=== PATIENT | male | born 1950 | race Caucasian/White ===

== ENCOUNTER → 2017-08-24 10:49 | Outpatient (CLI) | payer MEDICARE, OTHER ==
[~2017-08-24 10:49] MED LIST: ARISTOCORT 0.5%15 GM TOPICAL; BAYER CHEWABLE81 MG PO; CO Q-10100 MG PO; CRANBERRY 400 M1 TA1 PO; FISH OIL 1,0001 CA1 PO; FLUTICASONE PRO16 GM NASAL; HYDRALAZINE HCL50 MG PO; HYDROCODON-ACE1 EAC7 PO; LASIX40 MG PO; LOPRESSOR25 MG PO; MUCOMYST 2800 MG/4 M PO; MULTIPLE VITAMI1 TA1 PO; NEURONTIN 300300 MG PO; NORVASC10 MG PO; PRINIVIL20 MG PO; TEMAZEPAM30 MG PO; VITAMIN B-6200 M1 PO; VITAMIN D31000 UNIT PO
[2017-10-02 11:02] VITALS: BMI 27.2
== END | disposition home or self-care (01) ==
LOC: D.US 09:00 → D.RAD 09:00 → D.US 10:49
DX: N18.4 Chronic kidney disease, stage 4 (severe) (principal)

== ENCOUNTER 2017-09-22 05:21 | Day surgery (SDC) | payer MEDICARE, OTHER ==
[2017-09-21 16:07] LABS: BASOPHILS 0.4 % (0-2); HEMATOCRIT 33.4 % (42.0-54.0); HEMOGLOBIN 10.8 g/dL (13.5-17.5); IMMATURE GRANULOCYTES 0.2 % (0-5); LYMPHOCYTES 21.2 % (15-50); MCH 27.8 pg (26.0-34.0); MCHC 32.3 g/dL (31.0-37.0); MCV 85.9 fL (80.0-100.0); MEAN PLATELET VOLUME 9.7 fL (7.4-10.4); MONOCYTES 7.2 % (2-11); PLATELET COUNT 139 10x3/uL (130-400); RBC 3.89 10x6/uL (4.20-6.10); RDW 15.7 % (11.5-14.5); WBC 8.3 10x3/uL (4.8-10.8)
[2017-09-21 16:29] LABS: INR 1.06 (0.85-1.17); PROTIME 13.4 SECONDS (11.6-15.0)
[2017-09-21 16:30] LABS: ANION GAP 15.2 mmol/L (8-16); CALCIUM 8.1 mg/dL (8.5-10.1); CARBON DIOXIDE 23.9 mmol/L (21.0-32.0); CREATININE - SERUM 6.1 mg/dL (0.6-1.3); POTASSIUM - SERUM 4.1 mmol/L (3.5-5.1)
[~2017-09-22] VITALS: Ht 182.9 cm; Wt 94.3 kg
--- NOTE | ~2017-09-22 | OP ---
PATIENT NAME: DEBORAH RAZA MEDICAL RECORD: [id number] :46 LOCATION:[facility] ADMISSION DATE: SURGEON: IJEOMA SALGADO MD DATE OF OPERATION: 09/22/2017 REFERRED BY: Dr. Corona. PREOPERATIVE DIAGNOSIS: Chronic kidney disease stage IV-V. OPERATION PERFORMED: Creation of a left wrist radiocephalic Alfred type AV fistula. SURGEON: Ijeoma Salgado MD ANESTHESIA: General endotracheal per PATTERN KEEPER. PREOPERATIVE NOTE: Mr. Raza is a 67-year-old white male patient with deteriorating renal function and is expected that he will require dialysis. He was referred to me for creation of arteriovenous fistula. He is known to have large veins in a satisfactory radial artery at the left wrist, I planned a Alfred fistula. I had also discussed with the patient implantation of a peritoneal catheter, which he had expressed a desire for that had been approved through Dr. Corona's office, but the order was not added to the patient's chart and that was not picked up before he was induced in the operating room. Not having written consent for laparoscopic peritoneal dialysis catheter in this situation with such an early implantation, I thought it is best to forego that today. DESCRIPTION OF PROCEDURE: With the patient under anesthesia, he was prepped and draped in a sterile manner and examined with duplex ultrasound after topical nitroglycerin was applied and with the use of a proximal venous tourniquet. He has very large veins without any evidence of obstruction, a good cephalic vein at the wrist, which runs off via both the proximal cephalic and basilic veins. The radial artery is large without significant calcifications. A longitudinal incision was made at the wrist and the cephalic vein and radial artery exposed, they were dissected from the surrounding tissues. Tributaries and branches divided between ligatures of Vicryl or with electrocautery. The vessels were controlled with Silastic loops. The vein distally was ligated with 3-0 Vicryl and divided and beveled. It was then flushed with heparinized saline and hydrostatically distended and additional papaverine applied topically. The artery was then opened for a distance of approximately 6 mm. The artery was flushed proximally and distally with heparinized saline and following that, an end-to-side end of vein to side of artery anastomosis was performed with running 7-0 Prolene. Upon completion of the suture line and release of the occluding Silastic loops, excellent flow was established in the fistula and the suture line was hemostatic. Doppler examination was very satisfactory with continuous pulsatile flow present in the cephalic vein above the anastomosis and good radial artery flow proximally and distally. The wound was closed with interrupted inverted 3-0 Vicryl and then running intracuticular 4-0 Monocryl and Dermabond glue. It was dressed with Maxorb Ag, Tegaderm, and Cavilon skin prep. The patient was awakened and taken to recovery room in stable condition. The patient will be discharged to home today. He will continue his usual diet OPERATIVE REPORT [id number] DEBORAH RAZA and all of his same home medications and he is given a prescription for Lorton 5/325 twenty tablets. He can take 1 or if necessary 2 as often as every 4 hours p.r.n. for pain. He is to see me back in my office in 2 weeks. He can resume activities and shower and wash over the waterproof plastic dressings as soon as he wishes. He may leave the original operative dressing intact for the next 2 weeks until he sees me in the office or if he wants in the next 5-7 days, he can remove the dressing and thereafter wash the incision site directly with soap and water and then keep it covered with clean dry sterile gauze dressing. Blood loss during the procedure was insignificant and unreplaced. All sponges, instruments, and needles were accounted for. No drain was used and no surgical specimen was submitted for histopathology. TRANSINT:[id number] Voice Confirmation ID: [id number] DOCUMENT ID: [id number] IJEOMA SALGADO MD at 1019 CC: JOSE CORONA MD [id number] DICTATION DATE: 09/22/17 1002 SUPPLY CHAIN PROCUREMENT MANAGER: 09/22/17 1128 [facility] 09/22/17 [place] [id number] [place] [id number]
[~2017-09-22 05:21] MED LIST changes: -HYDROCODON-ACE1 EAC7 PO; -MUCOMYST 2800 MG/4 M PO
[2017-09-22 06:00] VITALS: Ht 182.9 cm; Wt 94.3 kg
[2017-09-22] MEDS ORDERED: HYDROCODON-ACE1 EAC7 PO (09:50)
== END 2017-09-22 12:00 | disposition home or self-care (01) ==
LOC: D.OPS 05:21 → D.PAN 07:30 → D.OPS 07:30
PROVIDERS: Surgery
DX: N18.4 Chronic kidney disease, stage 4 (severe) (principal); Z01.812 Encounter for preprocedural laboratory examination

== ENCOUNTER 2017-10-02 10:32 | Outpatient (CLI) | payer MEDICARE, OTHER ==
[~2017-10-02] VITALS: Ht 182.9 cm; Wt 90.9 kg
--- NOTE | ~2017-10-02 | OP ---
PATIENT NAME: DEBORAH RUCKER MEDICAL RECORD: [id number] :46 LOCATION:D[facility] ADMISSION DATE: SURGEON: JOSE DEE MD DATE OF OPERATION: 10/02/2017 PROCEDURE: Left heart catheterization, selective coronary angiography, right femoral artery approach. CATHETERS: A 5-[place] sheath, 5/4 left and right Kiki, 5/4 pig. The procedure was well tolerated and the patient returned to gao, sheath removed. ExoSeal device placed. FINDINGS: Left ventriculography in the 30-degree LLAMAS view shows global hypokinesis, reduced LV function, estimated EF 25% to 30%. CORONARY ANATOMY: 1. Left main: Left main is free of disease. 2. LAD has proximal portion at the takeoff of a large diagonal, has about a 90% stenosis. This involves the diagonal itself about 80% proximal stenosis. 3. Circumflex: Circumflex has 1 large OM about 80% stenosis. 4. Right coronary artery: Right coronary artery has severe diffuse areas of stenosis 80% to 90% with a reasonable target distally. IMPRESSION: Multivessel coronary artery disease, decreased LV systolic function. Given anatomy, it would probably be best suited for coronary artery bypass grafting. Dr. Castillo will be consulted for that purpose. TRANSINT:[id number] Voice Confirmation ID: [id number] DOCUMENT ID: [id number] JOSE DEE MD CC: [id number] DICTATION DATE: 10/02/17 1404 WE[facility] PULLER HEAD: 10/02/17 1430 [facility] [address] [place] [address]
--- NOTE | ~2017-10-02 | HEMODYNAMI ---
PATIENT:DEBORAH RUCKER GENE MEDICAL RECORD: [id number] : 46 LOCATION:[facility] ADMISSION DATE: 10/02/17 Generatedon:10/02/201714:00 Patient name: DEBORAH RUCKER Patient #: [id number] SSN: : 1950 Date of study: 10/02/2017 Page: Of Hemodynamic Procedure Report Patient Data Patient Demographics Procedure consent was obtained First Name: DEBORAH Gender: Male Last Name: CHAIM : 1950 [facility] Initial: GENE Age: 67 year(s) Patient #: [id number] Race: Unknown Additional ID: [id number] Contact details [address]: [address] [place] [address] State: [place] City: [place] Zip code: [address] Past Medical History Allergies Allergen Reaction Date Comments Reported Other allergy 10/02/2017 PCN Admission Admission Data Admission Date: 10/02/2017 Admission Time: 10:32 Height (in.): 72 BSA: 2.17 (m2) Height (cm.): 182.88 BMI: 28.21 (kg/m2) Weight (lbs.): 208 Weight (kg.): 94.35 Procedure Procedure Types Cath Procedure Diagnostic Procedure [facility] w/Coronaries Procedure Description Procedure Date Procedure Date: 10/02/2017 Procedure Start Time: 13:44 Procedure End Time: 13:59 Procedure Staff Name Function Henry Chavis MD Performing Physician Alie Evans RT Monitor Nancy Gomes RT Scrub Neela Rome RN Nurse Procedure Data Cath Procedure Fluoroscopy Diagnostic fluoroscopy Total fluoroscopy Time: 1.4 time: 1.4 min min Diagnostic fluoroscopy Total fluoroscopy dose: 637 dose: 637 mGy mGy Contrast Material Contrast Material Type Amount (ml) Isovue 300 81 Entry Location Entry Primary Successful Side Size Upsize Upsize Entry Closure Succes sful Closure Location (Fr) 1 (Fr) 2 (Fr) Remarks Device Remarks Femoral Right 5 Fr Exoseal artery Estimated blood loss: 10 ml Diagnostic catheters Device Type Used For End Catheter Placement MULTIPACK JL 4.0 5Fr Procedure catheter MULTIPACK 3DRC 5Fr Procedure catheter MULTIPACK Pigtail 5 Fr Procedure catheter Procedure Complications No complications Procedure Medications Medication Administration Route Dosage 0.9% NaCl I.V. Oxygen NC 2 l/min Lidocaine 2% added to field 20 Heparin Flush Bag added to field 2 bags (1000units/500ml NS) Fentanyl I.V. 50 mcg Versed I.V. 1 mg Versed I.V. 1 mg Fentanyl I.V. 50 mcg Hemodynamics Rest BSA: 2.17 (m2) O2 Consumption: Estimated: 244.02 (ml/min) O2 Consumption indexed : Estimated:112.45 (ml/min/m) Heart Rate: 61 (bpm) Pressure Samples Time Site Value (mmHg) Purpose Heart Use Rate(bpm) 13:52 LV 143/14,23 Snapshot 61 13:52 AO 157/66(99) Pullback 63 13:52 LV 141/15,19 Pullback 63 Gradients Valve Time Site 1 Site 2 Mean SEP/DFP Peak To Heart Use (mmHg) (sec/min) Peak Rate (mmHg) (bpm) Aortic 13:52 LV AO 0 63 141/15,19 157/66(99) Calculations Valve P-P Mean Valve Index Valve Source Name Gradient Area Flow (cm2) Aortic 0 0 Snapshots Pre Cath Intra NCS Post Cath Vital Signs Time Heart Resp SPO2 etCO2 NIBP (mmHg) Rhythm Pain Sedation Rate (ipm) (%) (mmHg) Status Level (bpm) 13:35:34 59 17 98 32.5 161/78(136) NSR 0 (11) 10(A) , No pain 13:40:02 58 17 97 32.5 156/73(130) NSR 0 (11) 10(A) , No pain 13:44:29 61 15 96 39.4 149/73(127) NSR 0 (11) 10(A) , No pain 13:48:51 61 16 97 20.4 152/78(122) NSR 0 (11) 9(A) , No pain 13:53:07 62 15 97 34 149/83(126) NSR 0 (11) 9(A) , No pain 13:57:31 65 16 98 8.3 154/73(125) NSR 0 (11) 10(A) , No pain Medications Time Medication Route Dose Verified Delivered Reason Notes Effec tiveness by by 13:34:54 0.9% NaCl I.V. kvo Henry Keita used for ml/hr Partha Rome cte teacher MD 13:35:20 Fentanyl I.V. 50 Henry Sanchezfany for [facility] [place] [facility] Lew Rome RN sedation 13:35:26 Versed I.V. 1 mg Henry Sanchezfany for [facility] Lew Rome RN sedation 13:35:44 Oxygen NC 2 Henry Sanchezfany Per l/min [facility] RN physician 13:35:52 Lidocaine 2% added 20ml Henry Henry used for to vial [place] Partha procedure field MD DO 13:35:59 Heparin Flush added 2 Henry Henry used for [facility] (1000units/500ml field MD DO NS) 13:48:29 Versed I.V. 1 mg Henry Sanchezfany for [facility] Lew Rome RN sedation 13:48:35 Fentanyl I.V. 50 Henry Neela for [facility] RN sedation Procedure Log Time Note 13:23:30 Patient Height : 72 inches 13:23:40 Patient Weight : 208 lbs 13:24:05 Diagnostic Cath status Elective 13:24:07 Nancy Gomes RT(R) sent for patient. Start room use. 13:24:08 Time tracking: Regular hours 13:24:12 Plan of Care:Hemodynamics will remain stable., Cardiac rhythm will remain stable., Comfort level will be maintained., Respiratory function will remain adequate., Patient/ family verbilizes understanding of procedure., Procedure tolerated without complication., Recovers from procedure without complications.. 13:24:41 Patient received from Pre/Post Procedure Room to CCL 2 Alert and oriented. Tansferred to table in Supine position. 13:24:42 Warm blankets applied, and tigre hugger turned on for patient comfort. 13:24:43 Correct patient and procedure confirmed by team. 13:24:59 Signed procedure consent form obtained from patient. 13:25:24 H&P Date Dictated: 09/15/2017 Within 30 days and on chart., H&P Addendum completed by physician on day of procedure. (MUST COMPLETE FOR ALL OUTPATIENTS). 13:25:26 Pre-procedure instructions explained to patient. 13:25:28 Family in waiting room. 13:25:30 Patient NPO since Midnight. 13::41 Patient allergic to Other allergyPCN 13:25:45 Is the patient allergic to Iodine/contrast media? No. 13::46 Was the patient premedicated? Yes 13:25:47 Is patient on blood thinner?No 13:25:51 Patient diabetic? No. 13::56 Snore? No 13:25:57 Sleep apnea? No 13:34:15 Vital chart was started 13::25 Patient pain scale 0/10 ?. 13:34:39 IV patent on arrival in right forearm with 0.9% NaCl at KVO. 13::54 0.9% NaCl kvo ml/hr I.V. was administered by Neela Rome RN; used for procedure; ::56 Lab results completed and on chart. 13:35:01 Right groin area was prepped with chlora-prep and draped in sterile fashion 13:35:02 Alarms reviewed by R. N. 13:35:02 Sharps counted by scrub and verified by R.N. 13:35:05 Physician paged 13:35:06 Physician arrived 13:35:07 --------ALL STOP TIME OUT------ 13:35:07 Final Timeout: patient, procedure, and site verified with staff and physician. All members of the team are in agreement. 13:35:10 Right groin site verified by team. 13:35:16 Physical assessment completed. ASA score P 2 - A patient with mild systemic disease as per Henry Chavis MD. 13:35:20 Fentanyl 50 mcg I.V. was administered by Neela Rome RN; for sedation; 13:35:21 Sedation plan: IV Moderate Sedation Medication:Versed, Fentanyl 13:35:26 Versed 1 mg I.V. was administered by Neela Rome RN; for sedation; 13:35:33 Use device set Femoral Dx 13:35:34 ACIST Syringe (81337) opened to sterile field. 13:35:35 Bag Decanter (2002S) opened to sterile field. 13:35:35 Medline Cath Pack ([id number]) opened to sterile field. 13:35:36 SHEATH 5FR [place] (BUF031) opened to sterile field. 13:35:37 DIAGNOSTIC WIRE .035 260cm J wire (558348) opened to sterile field. 13:35:39 ACIST Hand Control (35979) opened to sterile field. 13:35:40 ACIST Manifold (25822) opened to sterile field. 13:35:40 DIAGNOSTIC Multipack 5Fr catheter set (AZ3629) opened to sterile field. 13:35:41 Tegaderm 4 x 4 (1626W) opened to sterile field. 13:35:42 PERCUTANEOUS ENTRY 19GA needle opened to sterile field. 13:35:44 Oxygen 2 l/min NC was administered by Neela Rome RN; Per physician; 13:35:52 Lidocaine 2% 20ml vial added to field was administered by Henry Chavis MD; used for procedure; 13:35:59 Heparin Flush Bag (1000units/500ml NS) 2 bags added to field was administered by Henry Chavis MD; used for procedure; 13:44:41 Procedure started. 13:44:41 Full Disclosure recording started 13:44:46 Local anesthetic to right femoral artery with Lidocaine 2% by Henry Chavis MD.INITIAL ACCESS ONLY 13:45:06 A 5 Fr sheath was inserted into the Right Femoral artery 13:45:29 Zero performed for pressure channel P1 13:45:35 Zero performed for pressure channel P1 13:46:29 A MULTIPACK JL 4.0 5Fr catheter was advanced over the wire and used for Procedure. 13:46:40 LCA angiography performed. 13:48:29 Versed 1 mg I.V. was administered by Neela Rome RN; for sedation; 13:48:35 Fentanyl 50 mcg I.V. was administered by Neela Rome RN; for sedation; 13:49:25 Catheter removed. 13:49:44 A MULTIPACK 3DRC 5Fr catheter was advanced over the wire and used for Procedure. 13:49:57 RCA angiography performed. 13:51:49 Catheter removed. 13:51:56 A MULTIPACK Pigtail 5 Fr catheter was advanced over the wire and used for Procedure. 13:52:40 Catheter removed. 13:52:53 EF : 30 % 13:53:17 EXOSEAL 5Fr (EX500) opened to sterile field. 13:53:51 Sheath removed intact; hemostasis achieved with Exoseal to the Right Femoral artery. 13:53:53 Procedure ended.(Physican Out) 13:54:12 Fluoroscopy time 01.40 minutes. 13:54:45 Fluoroscopy dose: 637 mGy 13:54:45 Flurop Dose total: 637 13:54:49 Contrast amount:Isovue 300 81ml. 13:54:51 Sharps counted by scrub and verified by R.N. 13:54:55 Insertion/operative site no bleeding no hematoma. 13:55:02 Post right femoral artery:stable 13:55:39 Post Procedure Pulses reassessed and unchanged 13:55:45 Post-procedure physical assessment completed. ASA score P 2 - A patient with mild systemic disease as per Henry Chavis MD. 13:55:51 Post procedure rhythm: sinus rhythm 13:55:54 Estimated blood loss: 10 ml 13:55:56 Post procedure instruction explained to patient.Patient verbalizes understanding. 13:55:57 Patient needs reinforcement of post procedure teaching. 13:56:07 Procedure and supply charges have been captured, reviewed, submitted and are correct. 13:56:32 Procedure Complication : No complications 13:56:35 Vital chart was stopped 13:59:29 Patient transfered to Pre/Post Procedure Room with Stretcher. 13:59:31 Procedure ended. 13:59:31 Full Disclosure recording stopped 13:59:34 End room use (Document Last) Device Usage Item Name Manufacture Quantity Catalog Hospital Part Current Minimal Lot# / Number Charge Number Stock Stock Serial# Code ACIST Acist 1 [id number] 820584 117271 20 Syringe [employer] (70985) Systems Inc Bag Decanter Microtek 1 2001S 103654 83058 511845 5 (2001S) Medical Inc. Medline Cath Cardinal 1 [id number] 197853 09262 108646 5 RedFlag Software ([id number]) SHEATH 5FR Terumo 1 QXM784 301827 499038 857077 40 [place] (BPM303) DIAGNOSTIC St Adithya 1 395886 994907 181601 143140 30 WIRE .035 260cm J wire (793757) ACIST Hand Acist 1 49207 908411 196285 213997 5 Control Medical (63085) Systems Inc ACIST Acist 1 21928 995680 503908 066445 5 Manifold Medical (97299) Systems Inc DIAGNOSTIC Cardinal 1 [id number] 508762 69672 716254 30 Multipack Health 5Fr catheter set ([id number]) Tegaderm 4 x 3M 1 1626W 799788 652365 025569 5 4 (1626W) PERCUTANEOUS [facility] 1 [id number] 970647 437990 5 ENTRY 19GA needle MULTIPACK JL Cardinal 1 650954 5 4.0 5Fr Health catheter MULTIPACK Cardinal 1 617992 5 3DRC 5Fr Health catheter MULTIPACK Cardinal 1 788407 5 Pigtail 5 Fr Health catheter EXOSEAL 5Fr Cardinal 1 EX500 139246 393294 672514 10 (EX500) Health Signature Audit [place] Stage Time Signature Unsigned Intra-Procedure 10/02/2017 Alie Evans 2:00:50 PM RT(R) Signatures Monitor : Alie Evans Signature : RT Date : Time : [place] [address] [place] [address]
[~2017-10-02 10:32] MED LIST changes: +HYDROCODON-ACE1 EAC7 PO
[2017-10-02 11:02] VITALS: BP 166/72; Ht 182.9 cm; Wt 90.9 kg
[2017-10-02] MEDS ORDERED: MUCOMYST 2800 MG/4 M PO (11:12)
[2017-10-02 11:39] LABS: BASOPHILS 0.5 % (0-2); EOSINOPHILS 5.3 % (0-7); HEMATOCRIT 33.1 % (42.0-54.0); HEMOGLOBIN 10.6 g/dL (13.5-17.5); IMMATURE GRANULOCYTES 0.4 % (0-5); LYMPHOCYTES 22.5 % (15-50); MCH 27.2 pg (26.0-34.0); MCV 85.1 fL (80.0-100.0); MEAN PLATELET VOLUME 9.7 fL (7.4-10.4); MONOCYTES 9.6 % (2-11); NEUTROPHILS 61.7 % (40-80); PLATELET COUNT 155 10x3/uL (130-400); RBC 3.89 10x6/uL (4.20-6.10); RDW 15.1 % (11.5-14.5); WBC 7.3 10x3/uL (4.8-10.8)
[2017-10-02 11:52] LABS: ANION GAP 16.7 mmol/L (8-16); CALCIUM 8.1 mg/dL (8.5-10.1); CARBON DIOXIDE 22.3 mmol/L (21.0-32.0)
== END 2017-10-02 16:10 | disposition home or self-care (01) ==
LOC: D.CATH 10:32
PROVIDERS: Internal Medicine Interventional Cardiology
DX: I25.119 Atherosclerotic heart disease of native coronary artery with unspecified angina pectoris (principal); R06.00 Dyspnea, unspecified; R94.31 Abnormal electrocardiogram [ECG] [EKG]; Z01.810 Encounter for preprocedural cardiovascular examination; Z01.812 Encounter for preprocedural laboratory examination

== ENCOUNTER → 2017-10-06 11:46 | Outpatient (CLI) | payer MEDICARE, OTHER ==
[2017-10-02 11:02] VITALS: BMI 27.2
[~2017-10-06 11:46] MED LIST changes: +MUCOMYST 2800 MG/4 M PO
[2017-10-07 13:10] LABS: HEPATITIS C ANTIBODY <0.1 (0.0-0.9)
== END | disposition home or self-care (01) ==
LOC: D.US 11:46
PROVIDERS: Internal Medicine Cardiovascular Disease
DX: Z01.812 Encounter for preprocedural laboratory examination (principal); I65.23 Occlusion and stenosis of bilateral carotid arteries

== ENCOUNTER 2017-10-11 05:00 | Inpatient (IN) | payer MEDICARE, OTHER ==
[2017-10-10 12:40] LABS: HEMATOCRIT 32.9 % (42.0-54.0); HEMOGLOBIN 11.1 g/dL (13.5-17.5); LYMPHOCYTES 24.6 % (15-50); MCH 28.2 pg (26.0-34.0); MCHC 33.7 g/dL (31.0-37.0); MCV 83.5 fL (80.0-100.0); MEAN PLATELET VOLUME 9.3 fL (7.4-10.4); NEUTROPHILS 64.7 % (40-80); PLATELET COUNT 154 10x3/uL (130-400); RBC 3.94 10x6/uL (4.20-6.10); RDW 14.9 % (11.5-14.5); WBC 7.6 10x3/uL (4.8-10.8)
[2017-10-10 12:58] LABS: APPEARANCE CLEAR (CLEAR); BILIRUBIN NEGATIVE (NEGATIVE); COLOR YELLOW (YELLOW); GLUCOSE NEGATIVE (NEGATIVE); KETONE NEGATIVE (NEGATIVE); NITRITE NEGATIVE (NEGATIVE); PROTEIN 2+ mg/dL (NEGATIVE); SPECIFIC GRAVITY 1.015 (1.005-1.020); UROBILINOGEN NORMAL (NORMAL)
[2017-10-10 13:11] LABS: BACTERIA FEW /hpf (NONE SEEN); EPITHELIAL CELLS 0-5 /hpf (0-5); GRANULAR CAST OCC /lpf (NONE SEEN); MUCUS <1+ /lpf (NONE SEEN)
[2017-10-10 13:12] LABS: ALBUMIN 3.8 g/dL (3.4-5.0); ANION GAP 13.8 mmol/L (8-16); BILIRUBIN - TOTAL 0.39 mg/dL (0.2-1.3); CALCIUM 8.1 mg/dL (8.5-10.1); CARBON DIOXIDE 24.1 mmol/L (21.0-32.0); CREATININE - SERUM 5.8 mg/dL (0.6-1.3); PHOSPHOROUS 4.5 mg/dL (2.5-4.9); POTASSIUM - SERUM 3.9 mmol/L (3.5-5.1); PROTEIN - SERUM 7.7 g/dL (6.4-8.2); T4 THYROXIN - FREE 0.83 ng/dL (0.76-1.46); THYROID STIMULATING HORMONE 2.66 uIU/mL (0.36-3.74); URIC ACID 8.1 mg/dL (2.6-7.2)
[2017-10-11] VITALS (29 sets, daily range): BP systolic 82–130; BP diastolic 34–50; BMI 27.2; BMI 29.7
--- NOTE | ~2017-10-11 | HP ---
PATIENT: DEBORAH RUCKER GENE MEDICAL RECORD: [id number] ACCOUNT: [id number] LOCATION:[place] [address] : 46 ADMISSION DATE: 10/11/17 HISTORY AND PHYSICAL EXAMINATION CON Cristina (67yo, M) ID# [id number]. Date/Time10/06/2017 10:[id number] Dept.NPP_[facility] ClinicProviderEDPATRICIA HERNANDEZ MDInsuranceMed Primary: [place]) Insurance # : [id number] Referring Provider Name : JOSE MURILLO Employer Name : UNKNOWN Med Secondary: [employer] SUPPLEMENTAL - [employer] (MEDICARE SUPPLEMENT) Insurance # : [id number] Employer Name : UNKNOWN Prescription: DSTPSDIR - Member is eligible. Chief Complaint Coronary artery disease eval for CABG Patient's Care Team Referring Provider (): JOSE MURILLO: [address] [place] [address], , Air Twister Winder: JOSE DEE MD Primary Care Provider: Augustus KUNZ MD: [address] [place] [address], , Patient's Pharmacies [facility] (ERX): [address] [facility] [address], , Vitals BP:140/60 sitting R arm 10/06/2017 10:38 amBP Cuff Size:adult 10/06/2017 10:38 amHR:60,reg 10/06/2017 10:38 amHt:6 ft 10/06/2017 10:39 amWt:200 lbs 10/06/2017 10:39 amNotes:has had shortness of breath that has increased over the past three years 10/06/2017 10:40 amBMI:27.1 10/06/2017 10:39 amAllergies Reviewed Allergies PENICILLINSMedications Reviewed Medications amLODIPine 10 mg /27/18 [facility] UnitAspir- enteredKathy Wilsonfluticasone 50 mcg/actuation nasal spray,xgqyqydslp32/06/17 [facility] Qnektfurosemide 40 mg apmccm73/31/17 [facility] Qnektgabapentin 300 mg yjnpana28/06/17 [facility] QnekthydrALAZINE 50 mg ujwfsp72/29/18 [facility] QnektHYDROcodone 5 mg-acetaminophen 325 mg sfelvo03/05/18 [facility] Qnektketoconazole 2 % topical cream06/22/17 [facility] Qnektlisinopril 20 mg vdyhmc79/29/18 [facility] Qnektmetoprolol tartrate 25 mg /27/18 [facility] Qnekttemazepam 30 mg hktqbyf01/30/18 [facility] Qnekttriamcinolone acetonide 0.5 % topical cream08/29/17 [facility] QnektProblems Reviewed Problems Chronic kidney disease stage 4 - Onset: 10/06/2017 Coronary arteriosclerosis - Onset: 10/03/2017 Family History Discussed Family History Father- No current problems or disabilityMother- No current problems or disabilitySocial History HISTORY AND PHYSICAL [id number] DEBORAH RUCKER Discussed Social History Cardiology Smoking Status: Never smoker Surgical History Reviewed Surgical History Past Medical History Discussed Past Medical History Hypertension: Y Kidney Disease: Y Kidney Failure: Y Notes: HAS BEEN IN WORKUP FOR PLACEMENT ON KIDNEY TRANSPLANT LIST Documents for Discussion N/A Screening None recorded. HPI Coronary Artery Disease F/U Reported by patient. Severity: no chest discomfort with daily activities; has not needed to use Nitroglycerin Context: non-smoker Associated Symptoms: no chest pain; no neck pain; no left arm pain; no dyspnea with exertion; no sweating; no nausea; no stress; does note irregular heart beATS AT TIMES coronary artery disease Chronic renal failure ROS Patient reports exercise intolerance but reports no fever, no night sweats, no significant weight gain, and no significant weight loss. He reports shortness of breath when walking but reports no chest pain, no arm pain on exertion, no palpitations, and no known heart murmur. He reports shortness of breath but reports no cough, no wheezing, and no coughing up blood. He reports no dry eyes, no irritation, and no vision change. He reports no difficulty hearing and no ear pain. He reports no frequent nosebleeds and no nose/sinus problems. He reports no sore throat, no bleeding gums, no snoring, no dry mouth, no mouth ulcers, no oral abnormalities, and no teeth problems. He reports no jugular vein distension and no swollen glands. He reports no abdomin a l pain, no vomiting, normal appetite, no diarrhea, not vomiting blood, no nausea, and no constipation. He reports no incontinence, no difficulty urinating, no hematuria, and no increased frequency. He reports no muscle aches, no muscle weakness, no arthra l gias/joint pain, no back pain, and no swelling in the extremities. He reports no abnormal mole, no jaundice, and no rashes. He reports no loss of consciousness, no weakness, no numbness, no seizures, no dizziness, and no headaches. He reports no depressio n, no sleep disturbances, feeling safe in relationship, and no alcohol abuse. He reports no fatigue. He reports no swollen glands and no bruising. He reports no runny nose, no sinus pressure, no itching, no hives, and no frequent sneezing. ROS as noted in the HPI Physical Exam Patient is a 67-year-old male. Constitutional: General Appearance well nourished and developed and healthy-appearing. Level of Distress NAD. Ambulation ambulating normally. Cardiovascular: Apical Impulse not displaced or no thrill. Heart Auscultation normal HISTORY AND PHYSICAL [id number] DEBORAH RUCKER GENE s1 and s2; no murmurs, rubs, or gallops; and RRR. Arterial Pulses no abdominal aorta bruits, femoral bruits, or popliteal bruits and 2+ bilateral, carotid 2+ bilateral, femoral 2+ bilateral, popliteal 2+ bilateral, and dorsalis p adonis 2+ bilateral. Edema no edema or varicosities. Lungs: Repiratory Effort no dyspnea. Percussion no hyperresonance or dullness or flatness. Auscultation no wheezing, rhonchi, or rales / crackles and breathing sounds normal, good air movement, and CTA except as noted. Abdomen: Bowl Sounds normal. Inspection and Palpation no tenderness, guarding, masses, or rebound tenderness and soft and non-distended. Liver non-tender and no hepatomegaly. Spleen non-tender and no splenomegaly. Hernia none palpable. Musculoskeletal System: Gait And Stance normal gait and stance. Digits and Nails normal nails and no cyanosis. Neurologic: Cranial Nerves grossly intact. Reflexes DTRs 2+ bilaterally throughout. Sensation grossly intact. Lymph Nodes: Lymph Nodes no cervical LAD, supraclavicular LAD, axillary LAD, or inguinal LAD. Eyes: Lids and Conjunctivae no discharge or pallor and non-injected. Pupils PERRLA. Cornea grossly intact. EOM EOMI. Lens clear. Sclerae non-icteric. Neck: Neck no masses, enlarged lymph nodes, or carotid bruits and supple and trachea midline. Thyroid no enlargement or nodules and non-tender. Skin: Inspection and Palpation no rash, lesions, ulcers, jaundice, or abnormal nevi. Assessment / Plan coronary artery disease Chronic renal failure stage IV 1. Coronary arteriosclerosis I25.10: Atherosclerotic heart disease of [place] coronary artery without angina pectoris 2. Chronic kidney disease stage 4 N18.4: Chronic kidney disease, stage 4 (severe) Discussion Notes I have discussed the patient's disease process with him and his in detail as well as the alternative methods of treatment we discussed coronary artery bypass including the expected benefits and risks which include bleeding, infection, stroke, , and imponderables. He understands all of the above and wishes to proceed with planned surgery Scheduled for coronary artery bypass and notified Dr. Murillo's office HISTORY AND PHYSICAL [id number] DEBORAH RUCKER EDWARD MD at 1409 CC: [id number] DICTATION DATE: 10/06/17 1030 QUALITY ASSURANCE COACH: LIZ 10/09/17 0929 [facility] [place] [id number] [place] [id number]
--- NOTE | ~2017-10-11 | TEE ---
PATIENT:DEBORAH RUCKER GENE MEDICAL RECORD: [id number] LOCATION:[place] [address] AGE OF PATIENT: 67 ADMISSION DATE: 10/11/17 SEX: M REFERRING PHYSICIAN: INTERPRETING PHYSICIAN: CHARLETTE ZAVALA MD TRANSESOPHAGEAL ECHOCARDIOGRAM EVELINE CHARGE Y INDICATIONS: CABG PREMEDICATIONS: PATIENT'S RESPONSE PROCEDURE DOPPLER MEASUREMENTS: LVIT LA PA RA LVOT RVOT Asc. Ao AV Gradient Peak AV Mean AV Area MV Gradient Peak MV Mean MV Area INTERPRETATION: LVd: 7.2 cm LVs: 5.5 cm Doppler: 2-D: COLOR FLOW DOPPLER NORMAL SALINE STUDY: MISCELLANOUS: DIAGNOSIS: PLAN: Semiconductor Engineer:3 Dr. Chavis Surveillance Supervisor: Wilfred WALSH COMMENTS: DATE OF SERVICE: 10/11/2017 PROCEDURE: Transesophageal echo evaluation of valvular structures during bypass surgery. FINDINGS: 1. Left ventricular chamber size is dilated. Left ventricular systolic function is markedly reduced. Overall ejection fraction 25% to 30%. 2. Left atrium, right atrium, and right ventricular chamber sizes are mildly TRANSESOPHAGEAL ECHOCARDIOGRAM REPORT [id number] DEBORAH RUCKER GE dilated. 3. Valvular structures have normal structure and motion. 4. Doppler interrogation reveals only mild mitral regurgitation. No other valvular insufficiency or stenosis. 5. No evidence of pericardial effusion or left ventricular thrombus. TRANSINT:[id number] Voice Confirmation ID: [id number] DOCUMENT ID: [id number] at 1148 CC: [id number] DICTATION DATE: 10/11/17 1639 GROUND OPERATIONS CREW MEMBER: 10/12/17 1057 ADM IN [place] [id number] [place] [address]
--- NOTE | ~2017-10-11 | OP ---
PATIENT NAME: DBEORAH RUCKER MEDICAL RECORD: [id number] :46 LOCATION:[place] [address]04 ADMISSION DATE:10/11/17 SURGEON: GERALD CASTILLO MD DATE OF OPERATION: 10/11/2017 SURGEON: Gerald Castillo MD ANESTHESIA: General endotracheal, Andrea Cardenas MD OPERATIONS PERFORMED: Coronary artery bypass utilizing left internal thoracic to left anterior descending; reverse saphenous vein segment to posterior descending coronary artery; and reverse saphenous vein segment to sequential first diagonal, sequential second diagonal, and sequential obtuse marginal coronary artery. PREOPERATIVE DIAGNOSES: Severe occlusive coronary artery disease with angina equivalent and shortness of breath. POSTOPERATIVE DIAGNOSES: Severe occlusive coronary artery disease with angina equivalent and shortness of breath. INDICATIONS FOR OPERATION: Severe occlusive coronary artery disease with compelling anatomy and symptomatic shortness of breath. FINDINGS AT OPERATION: The left internal thoracic was an excellent vessel and conduit for bypassing. The upper portion of the saphenous vein was of excellent quality as was the midportion. The distal portion was, however, very small. The LAD could only be graftable in its distal one-third. The first diagonal, second diagonal, and obtuse marginal coronary arteries were all of good quality and caliber. The posterior descending was also of good caliber. ESTIMATED BLOOD LOSS: Cell Saver was used. The patient was anemic preoperatively. After informed consent, adequate preoperative medication, and evaluation, the patient was brought to the operating room and placed on the table in supine position. After induction of general endotracheal anesthesia and application of appropriate monitoring devices, the chest, neck, abdomen, and both legs were prepped and draped in sterile field utilizing Betadine scrub, alcohol, and Betadine solution. Betadine-impregnated drape was also used. Saphenous vein was harvested from right thigh and prepared for reverse saphenous vein grafting. Leg was closed over drains utilizing 3-0 Vicryl and skin cande. A median sternotomy incision was used and dissection was carried down to the fascia. Hemostasis was maintained with electrocautery. Sternum was divided. Innominate vein was identified and protected. Left internal thoracic was taken down and prepared for grafting. The patient was given a calculated dose of heparin, cannulated in a standard fashion utilizing one aortic, one 2-stage cannula in atrium and inferior vena cava. The patient was placed on cardiopulmonary bypass and cooled to 27 degrees centigrade. A vent was placed in right superior pulmonary vein. A crossclamp was placed just proximal to the aortic cannula and the patient was given cardioplegic solution through the aortic root. The patient was given cold induction and cold maintenance. The patient was given cold intermittent cardioplegic solution throughout the procedure through the root, through the grafts, or combination of both. The first vessel to be OPERATIVE REPORT [id number] DEBORAH RUCKER grafted was the obtuse marginal coronary artery. It was grafted end-to-side utilizing running 7-0 Prolene suture. The graft was measured to the first diagonal and then a [id number]-hd-dvga anastomosis was fashioned utilizing running 7-0 Prolene suture. The graft was then measured to the second diagonal and a rues-qn-igcc anastomosis was fashioned utilizing running 7-0 Prolene suture. Grafts were measured back to the aorta and proximal anastomosis was fashioned utilizing running 6-0 Prolene suture. Next, posterior descending was grafted end-to-side utilizing running 7-0 Prolene suture. Graft was measured back to the aorta and proximal anastomosis was fashioned utilizing running 6-0 Prolene suture. Next, left internal thoracic was brought through the hole in pericardium, sutured left anterior descending distally end-to-side utilizing a running 8-0 Prolene suture. Pedicle was attached to the epicardium with 6-0 Prolene suture. The proximal left anterior descending was intramyocardial and not graftable. The patient was then given warm cardioplegic reperfusion and controlled reperfusion, rewarmed to 37 degrees centigrade. Two atrial and two ventricular pacing wires were placed in the heart and brought out through the epigastric area. The patient was weaned cardiopulmonary bypass. After being stable off bypass, he was given calculated dose of protamine to reverse the heparin. Hemostasis was achieved. A #40 right angle and #36 chest tubes were brought in through the epigastric area and placed in the mediastinum. A separate left pleural tube was connected to underwater seal and suction. Chest was again irrigated. Instrument count and sponge count were correct times 2. Chest was closed in layers utilizing #7 wire on the sternum, #2 Vicryl on linea alba and pectoralis fascia. Subcutaneous tissue was approximated with 3-0 Vicryl and skin was approximated with 3-0 subcuticular Vicryl. Sterile dressings were applied. The patient tolerated the procedure well and was transferred to cardiovascular recovery in satisfactory condition. TRANSINT:[id number] Voice Confirmation ID: [id number] DOCUMENT ID: [id number] GERALD CASTILLO MD at 1409 CC: [id number] DICTATION DATE: 10/11/17 1641 RADIOLOGICAL TECHNOLOGIST: 10/11/17 1815 ADM IN [place] [address] [place] [address]
[2017-10-11] MEDS ORDERED: TUMS500 MG PO (05:32)
[2017-10-11 05:40] LABS: APTT 29.8 SECONDS (22.8-39.4); INR 1.1 (0.85-1.17); PROTIME 13.8 SECONDS (11.6-15.0)
[2017-10-11 08:19] LABS: PLT FUNCT.(P2Y12) PLAVIX 347 PRU (194-418)
[2017-10-11 16:07] LABS: HEMATOCRIT 28.7 % (42.0-54.0); HEMOGLOBIN 9.6 g/dL (13.5-17.5); MCH 28.9 pg (26.0-34.0); MCHC 33.4 g/dL (31.0-37.0); MEAN PLATELET VOLUME 9.3 fL (7.4-10.4); RBC 3.32 10x6/uL (4.20-6.10)
[2017-10-11 16:08] LABS: MCV 86.4 fL (80.0-100.0); PLATELET COUNT 78 10x3/uL (130-400); WBC 10.4 10x3/uL (4.8-10.8)
[2017-10-11 16:16] LABS: INR 1.49 (0.85-1.17); PROTIME 17.6 SECONDS (11.6-15.0)
[2017-10-11 16:43] LABS: PLATELET ESTIMATE DECREASED
[2017-10-11 16:52] LABS: ANION GAP 17.8 mmol/L (8-16); CALCIUM 7.7 mg/dL (8.5-10.1); CARBON DIOXIDE 25.2 mmol/L (21.0-32.0)
[2017-10-12] VITALS (95 sets, daily range): BP systolic 92–130; BP diastolic 43–62; BMI 30.9
[2017-10-12 06:29] LABS: HEMATOCRIT 32.4 % (42.0-54.0); HEMOGLOBIN 10.7 g/dL (13.5-17.5); MCH 28.2 pg (26.0-34.0); MCV 85.3 fL (80.0-100.0); MEAN PLATELET VOLUME 10.3 fL (7.4-10.4); RBC 3.8 10x6/uL (4.20-6.10); RDW 16.2 % (11.5-14.5)
[2017-10-12 07:00] LABS: ALBUMIN 3.6 g/dL (3.4-5.0); BILIRUBIN - TOTAL 0.74 mg/dL (0.2-1.3); CARBON DIOXIDE 25.8 mmol/L (21.0-32.0); CREATININE - SERUM 5.5 mg/dL (0.6-1.3); POTASSIUM - SERUM 4.8 mmol/L (3.5-5.1); PROTEIN - SERUM 5.4 g/dL (6.4-8.2)
[2017-10-12 17:12] LABS: ANION GAP 15.5 mmol/L (8-16); CALCIUM 7.6 mg/dL (8.5-10.1); CARBON DIOXIDE 25.6 mmol/L (21.0-32.0); CREATININE - SERUM 5.8 mg/dL (0.6-1.3); POTASSIUM - SERUM 5.1 mmol/L (3.5-5.1)
[2017-10-13] VITALS (77 sets, daily range): BP systolic 82–167; BP diastolic 41–84
[2017-10-13 05:33] LABS: BASOPHILS 0.2 % (0-2); EOSINOPHILS 0.9 % (0-7); HEMATOCRIT 31.6 % (42.0-54.0); HEMOGLOBIN 10.2 g/dL (13.5-17.5); IMMATURE GRANULOCYTES 0.2 % (0-5); LYMPHOCYTES 6.2 % (15-50); MCHC 32.3 g/dL (31.0-37.0); MCV 86.8 fL (80.0-100.0); MEAN PLATELET VOLUME 9.8 fL (7.4-10.4); MONOCYTES 18.5 % (2-11); RBC 3.64 10x6/uL (4.20-6.10); RDW 16.6 % (11.5-14.5)
[2017-10-13 05:35] LABS: PLATELET COUNT 54 10x3/uL (130-400)
[2017-10-13 06:08] LABS: ALBUMIN 3.3 g/dL (3.4-5.0); ANION GAP 15.3 mmol/L (8-16); BILIRUBIN - TOTAL 0.59 mg/dL (0.2-1.3); CALCIUM 8.1 mg/dL (8.5-10.1); CARBON DIOXIDE 26.1 mmol/L (21.0-32.0); CREATININE - SERUM 6.7 mg/dL (0.6-1.3); PHOSPHOROUS 6.5 mg/dL (2.5-4.9); POTASSIUM - SERUM 5.4 mmol/L (3.5-5.1); PROTEIN - SERUM 5.8 g/dL (6.4-8.2); VANCOMYCIN - RANDOM 42.6 ug/mL (10.0-20.0)
[2017-10-13 18:07] LABS: ANION GAP 18.4 mmol/L (8-16); CALCIUM 8.2 mg/dL (8.5-10.1); CARBON DIOXIDE 23.8 mmol/L (21.0-32.0); CREATININE - SERUM 7.5 mg/dL (0.6-1.3); POTASSIUM - SERUM 5.2 mmol/L (3.5-5.1)
[2017-10-14] VITALS (64 sets, daily range): BP systolic 81–157; BP diastolic 39–87
[2017-10-14 05:55] LABS: BASOPHILS 0.1 % (0-2); EOSINOPHILS 0.4 % (0-7); HEMATOCRIT 30.2 % (42.0-54.0); HEMOGLOBIN 9.7 g/dL (13.5-17.5); IMMATURE GRANULOCYTES 0.3 % (0-5); LYMPHOCYTES 8.6 % (15-50); MCH 28.3 pg (26.0-34.0); MCHC 32.1 g/dL (31.0-37.0); MEAN PLATELET VOLUME 10.3 fL (7.4-10.4); MONOCYTES 15.9 % (2-11); NEUTROPHILS 74.7 % (40-80); PLATELET COUNT 52 10x3/uL (130-400); RBC 3.43 10x6/uL (4.20-6.10); RDW 16.3 % (11.5-14.5); WBC 10.3 10x3/uL (4.8-10.8)
[2017-10-14 06:09] LABS: ALBUMIN 3.1 g/dL (3.4-5.0); ANION GAP 17.7 mmol/L (8-16); BILIRUBIN - TOTAL 0.76 mg/dL (0.2-1.3); CALCIUM 8.2 mg/dL (8.5-10.1); CARBON DIOXIDE 22.7 mmol/L (21.0-32.0); CREATININE - SERUM 8.3 mg/dL (0.6-1.3); PHOSPHOROUS 7.6 mg/dL (2.5-4.9); POTASSIUM - SERUM 5.4 mmol/L (3.5-5.1); VANCOMYCIN - RANDOM 38.5 ug/mL (10.0-20.0)
[2017-10-14 11:17] LABS: CREATININE - URINE 122.1 mg/dL (30-125)
[2017-10-14 11:20] LABS: APPEARANCE CLOUDY (CLEAR); BILIRUBIN NEGATIVE (NEGATIVE); COLOR YELLOW (YELLOW); GLUCOSE NEGATIVE (NEGATIVE); KETONE NEGATIVE (NEGATIVE); NITRITE NEGATIVE (NEGATIVE); PROTEIN 3+ mg/dL (NEGATIVE); UROBILINOGEN NORMAL (NORMAL)
[2017-10-14 11:21] LABS: BACTERIA MANY /hpf (NONE SEEN); EPITHELIAL CELLS 0-5 /hpf (0-5)
[2017-10-14 17:17] LABS: ANION GAP 17.7 mmol/L (8-16); CALCIUM 8.4 mg/dL (8.5-10.1); CARBON DIOXIDE 24.4 mmol/L (21.0-32.0); CREATININE - SERUM 8.5 mg/dL (0.6-1.3); POTASSIUM - SERUM 5.1 mmol/L (3.5-5.1)
[2017-10-15] VITALS (48 sets, daily range): BP systolic 101–163; BP diastolic 56–93
[2017-10-15 06:37] LABS: HEMOGLOBIN 10.1 g/dL (13.5-17.5); MCH 28.5 pg (26.0-34.0); MCHC 32.6 g/dL (31.0-37.0); MCV 87.6 fL (80.0-100.0); RBC 3.54 10x6/uL (4.20-6.10); RDW 15.8 % (11.5-14.5); WBC 10.4 10x3/uL (4.8-10.8)
[2017-10-15 06:54] LABS: BILIRUBIN - TOTAL 1.25 mg/dL (0.2-1.3); CALCIUM 8.8 mg/dL (8.5-10.1); PROTEIN - SERUM 6.2 g/dL (6.4-8.2)
[2017-10-15 18:31] LABS: ANION GAP 18.5 mmol/L (8-16); CALCIUM 8.2 mg/dL (8.5-10.1); CARBON DIOXIDE 25.4 mmol/L (21.0-32.0); CREATININE - SERUM 9.2 mg/dL (0.6-1.3); POTASSIUM - SERUM 4.9 mmol/L (3.5-5.1)
[2017-10-16] VITALS (25 sets, daily range): BP systolic 115–144; BP diastolic 61–80
[2017-10-16 05:56] LABS: HEMATOCRIT 31.5 % (42.0-54.0); HEMOGLOBIN 10.1 g/dL (13.5-17.5); MCH 28.2 pg (26.0-34.0); MCHC 32.1 g/dL (31.0-37.0); MEAN PLATELET VOLUME 10.7 fL (7.4-10.4); RBC 3.58 10x6/uL (4.20-6.10); RDW 15.7 % (11.5-14.5); WBC 9.1 10x3/uL (4.8-10.8)
[2017-10-16 06:25] LABS: ALBUMIN 2.9 g/dL (3.4-5.0); ANION GAP 20.5 mmol/L (8-16); BILIRUBIN - TOTAL 1.14 mg/dL (0.2-1.3); CALCIUM 8.4 mg/dL (8.5-10.1); CARBON DIOXIDE 23.2 mmol/L (21.0-32.0); CREATININE - SERUM 9.4 mg/dL (0.6-1.3); POTASSIUM - SERUM 4.7 mmol/L (3.5-5.1); PROTEIN - SERUM 6.2 g/dL (6.4-8.2)
[2017-10-16 17:25] LABS: CALCIUM 7.2 mg/dL (8.5-10.1); CARBON DIOXIDE 23.1 mmol/L (21.0-32.0); CREATININE - SERUM 9.3 mg/dL (0.6-1.3); POTASSIUM - SERUM 4.1 mmol/L (3.5-5.1)
[2017-10-17] VITALS (23 sets, daily range): BP systolic 104–157; BP diastolic 62–79
[2017-10-17 05:44] LABS: BASOPHILS 0.2 % (0-2); EOSINOPHILS 7.9 % (0-7); HEMOGLOBIN 10.1 g/dL (13.5-17.5); IMMATURE GRANULOCYTES 0.5 % (0-5); LYMPHOCYTES 9.5 % (15-50); MCH 28.5 pg (26.0-34.0); MCHC 32.6 g/dL (31.0-37.0); MCV 87.6 fL (80.0-100.0); MEAN PLATELET VOLUME 10.1 fL (7.4-10.4); MONOCYTES 15.8 % (2-11); NEUTROPHILS 66.1 % (40-80); PLATELET COUNT 111 10x3/uL (130-400); RBC 3.54 10x6/uL (4.20-6.10); RDW 15.5 % (11.5-14.5); WBC 9.2 10x3/uL (4.8-10.8)
[2017-10-17 06:17] LABS: ALBUMIN 2.8 g/dL (3.4-5.0); ANION GAP 21.3 mmol/L (8-16); BILIRUBIN - TOTAL 0.85 mg/dL (0.2-1.3); CALCIUM 8.2 mg/dL (8.5-10.1); CARBON DIOXIDE 21.7 mmol/L (21.0-32.0); CREATININE - SERUM 9.2 mg/dL (0.6-1.3); PHOSPHOROUS 6.9 mg/dL (2.5-4.9); PROTEIN - SERUM 6.2 g/dL (6.4-8.2); VANCOMYCIN - RANDOM 28.4 ug/mL (10.0-20.0)
[2017-10-17 17:27] LABS: CARBON DIOXIDE 26.6 mmol/L (21.0-32.0); POTASSIUM - SERUM 3.6 mmol/L (3.5-5.1)
[2017-10-18] VITALS (29 sets, daily range): BP systolic 109–165; BP diastolic 49–96
[2017-10-18 05:16] LABS: BASOPHILS 0.3 % (0-2); EOSINOPHILS 8.8 % (0-7); HEMATOCRIT 30.9 % (42.0-54.0); HEMOGLOBIN 10.2 g/dL (13.5-17.5); IMMATURE GRANULOCYTES 0.9 % (0-5); LYMPHOCYTES 10.5 % (15-50); MCH 28.5 pg (26.0-34.0); MCV 86.3 fL (80.0-100.0); MEAN PLATELET VOLUME 9.9 fL (7.4-10.4); MONOCYTES 16.4 % (2-11); NEUTROPHILS 63.1 % (40-80); PLATELET COUNT 130 10x3/uL (130-400); RBC 3.58 10x6/uL (4.20-6.10); RDW 15.4 % (11.5-14.5)
[2017-10-18 05:27] LABS: ANION GAP 17.2 mmol/L (8-16); CALCIUM 8.1 mg/dL (8.5-10.1); CARBON DIOXIDE 24.4 mmol/L (21.0-32.0); CREATININE - SERUM 8.9 mg/dL (0.6-1.3); PHOSPHOROUS 5.9 mg/dL (2.5-4.9); POTASSIUM - SERUM 3.6 mmol/L (3.5-5.1); VANCOMYCIN - RANDOM 25.8 ug/mL (10.0-20.0)
[2017-10-19] VITALS (24 sets, daily range): BP systolic 86–166; BP diastolic 52–82
[2017-10-19 05:15] LABS: BASOPHILS 0.5 % (0-2); EOSINOPHILS 6.8 % (0-7); HEMATOCRIT 30.7 % (42.0-54.0); HEMOGLOBIN 10.3 g/dL (13.5-17.5); IMMATURE GRANULOCYTES 0.8 % (0-5); LYMPHOCYTES 10.4 % (15-50); MCH 29.2 pg (26.0-34.0); MCHC 33.6 g/dL (31.0-37.0); MEAN PLATELET VOLUME 9.6 fL (7.4-10.4); MONOCYTES 16.3 % (2-11); NEUTROPHILS 65.2 % (40-80); PLATELET COUNT 142 10x3/uL (130-400); RBC 3.53 10x6/uL (4.20-6.10); RDW 15.8 % (11.5-14.5); WBC 8.4 10x3/uL (4.8-10.8)
[2017-10-19 05:40] LABS: ANION GAP 16.6 mmol/L (8-16); CALCIUM 8.1 mg/dL (8.5-10.1); CARBON DIOXIDE 24.9 mmol/L (21.0-32.0); CREATININE - SERUM 8.3 mg/dL (0.6-1.3); PHOSPHOROUS 5.3 mg/dL (2.5-4.9); POTASSIUM - SERUM 3.5 mmol/L (3.5-5.1); VANCOMYCIN - RANDOM 24.1 ug/mL (10.0-20.0)
[2017-10-20] VITALS (13 sets, daily range): BP systolic 135–165; BP diastolic 68–84
[2017-10-20 05:03] LABS: BASOPHILS 0.4 % (0-2); EOSINOPHILS 7.1 % (0-7); HEMATOCRIT 31.9 % (42.0-54.0); HEMOGLOBIN 10.4 g/dL (13.5-17.5); IMMATURE GRANULOCYTES 0.6 % (0-5); LYMPHOCYTES 16.4 % (15-50); MCH 28.7 pg (26.0-34.0); MCHC 32.6 g/dL (31.0-37.0); MCV 88.1 fL (80.0-100.0); MEAN PLATELET VOLUME 9.3 fL (7.4-10.4); MONOCYTES 14.2 % (2-11); NEUTROPHILS 61.3 % (40-80); RBC 3.62 10x6/uL (4.20-6.10); RDW 15.5 % (11.5-14.5); WBC 7.9 10x3/uL (4.8-10.8)
[2017-10-20 05:12] LABS: PLATELET COUNT 183 10x3/uL (130-400)
[2017-10-20 06:11] LABS: ANION GAP 18.6 mmol/L (8-16); CALCIUM 7.9 mg/dL (8.5-10.1); CARBON DIOXIDE 24.1 mmol/L (21.0-32.0); PHOSPHOROUS 5.7 mg/dL (2.5-4.9); POTASSIUM - SERUM 3.7 mmol/L (3.5-5.1)
[2017-10-20 13:52] LABS: INR 1.22 (0.85-1.17)
[2017-10-20] MEDS ORDERED: CORDARONE200 MG PO (17:20)
[2017-10-20] MEDS ORDERED: FLOMAX0.4 MG PO (17:20)
[2017-10-20] MEDS ORDERED: NORVASC5 MG PO (17:21)
[2017-10-20] MEDS ORDERED: LASIX40 MG PO (17:25)
[2017-10-20] MEDS ORDERED: RENVELA0.8 GM PO (17:27)
[2017-10-20] MEDS ORDERED: HYDROCODON-ACE1 EAC7 PO (17:33)
== END 2017-10-20 18:58 | disposition home or self-care (01) | DRG 236 ==
LOC: D.CVICU 05:00 → D.SDCHOLD 05:00 → D.CVICU 14:43
PROVIDERS: General Practice; Internal Medicine Cardiovascular Disease; Internal Medicine Nephrology
PROC: 021309W Bypass Coronary Artery, Four or More Arteries from Aorta with Autologous Venous Tissue, Open Approach (ICD-10-PCS; 2017-10-11)
PROC: 06BP0ZZ Excision of Right Saphenous Vein, Open Approach (ICD-10-PCS; 2017-10-11)
PROC: 5A1221Z Performance of Cardiac Output, Continuous (ICD-10-PCS; 2017-10-11)
PROC: B245ZZ4 Ultrasonography of Left Heart, Transesophageal (ICD-10-PCS; 2017-10-11)
PROC: 02100AC Bypass Coronary Artery, One Artery from Thoracic Artery with Autologous Arterial Tissue, Open Approach (ICD-10-PCS; principal; 2017-10-11 07:30)
DX: I25.119 Atherosclerotic heart disease of native coronary artery with unspecified angina pectoris (principal); I12.0 Hypertensive chronic kidney disease with stage 5 chronic kidney disease or end stage renal disease; N18.5 Chronic kidney disease, stage 5; J98.11 Atelectasis; N17.9 Acute kidney failure, unspecified; D63.1 Anemia in chronic kidney disease; N32.89 Other specified disorders of bladder; E87.5 Hyperkalemia; D69.6 Thrombocytopenia, unspecified

== ENCOUNTER 2017-10-22 06:02 | Inpatient (IN) | payer MEDICARE, OTHER ==
[2017-10-12 10:24] VITALS: BMI 30.9
[~2017-10-22 06:02] MED LIST changes: +CORDARONE200 MG PO; +FLOMAX0.4 MG PO; +NORVASC5 MG PO; +RENVELA0.8 GM PO; +TUMS500 MG PO
[2017-10-22 06:45] LABS: BASOPHILS 0.5 % (0-2); EOSINOPHILS 6.1 % (0-7); HEMATOCRIT 32.5 % (42.0-54.0); HEMOGLOBIN 10.2 g/dL (13.5-17.5); IMMATURE GRANULOCYTES 0.6 % (0-5); LYMPHOCYTES 13.1 % (15-50); MCH 27.9 pg (26.0-34.0); MCHC 31.4 g/dL (31.0-37.0); MEAN PLATELET VOLUME 8.7 fL (7.4-10.4); MONOCYTES 10.4 % (2-11); NEUTROPHILS 69.3 % (40-80); PLATELET COUNT 183 10x3/uL (130-400); RBC 3.65 10x6/uL (4.20-6.10); RDW 15.3 % (11.5-14.5); WBC 8.4 10x3/uL (4.8-10.8)
[2017-10-22 06:57] LABS: ALBUMIN 2.7 g/dL (3.4-5.0); ANION GAP 14.6 mmol/L (8-16); BILIRUBIN - TOTAL 0.52 mg/dL (0.2-1.3); CALCIUM 8.4 mg/dL (8.5-10.1); CREATININE - SERUM 7.6 mg/dL (0.6-1.3); POTASSIUM - SERUM 3.6 mmol/L (3.5-5.1); PROTEIN - SERUM 6.6 g/dL (6.4-8.2)
[2017-10-22 07:18] LABS: TROPONIN-I 0.513 ng/mL (0.000-0.060)
[2017-10-22 11:06] LABS: CKMB 1.9 U/L (0.0-3.6); CREATINE KINASE 76 UL (21-232)
[2017-10-22 11:08] LABS: TROPONIN-I 0.483 ng/mL (0.000-0.060)
== END 2017-10-22 12:30 | disposition left against medical advice (07) | DRG 187 ==
LOC: D.ER 06:02 → D.EDHOLD 08:17
PROVIDERS: Family Medicine
DX: J90 Pleural effusion, not elsewhere classified (principal); T81.31XA Disruption of external operation (surgical) wound, not elsewhere classified, initial encounter; Y83.8 Other surgical procedures as the cause of abnormal reaction of the patient, or of later complication, without mention of misadventure at the time of the procedure; R79.89 Other specified abnormal findings of blood chemistry; I10 Essential (primary) hypertension

== ENCOUNTER → 2017-10-24 11:55 | Outpatient (CLI) | payer MEDICARE, OTHER ==
[2017-10-12 10:24] VITALS: BMI 30.9
== END | disposition home or self-care (01) ==
LOC: D.RAD 11:55
DX: J91.8 Pleural effusion in other conditions classified elsewhere (principal)

== ENCOUNTER 2017-10-26 08:54 | Outpatient (CLI) | payer MEDICARE, OTHER ==
[~2017-10-26] VITALS: Ht 182.9 cm; Wt 88.6 kg
[2017-10-26 10:05] LABS: BASOPHILS 0.8 % (0-2); EOSINOPHILS 4.7 % (0-7); HEMOGLOBIN 11.4 g/dL (13.5-17.5); IMMATURE GRANULOCYTES 0.4 % (0-5); LYMPHOCYTES 9.9 % (15-50); MCH 28.1 pg (26.0-34.0); MCHC 31.7 g/dL (31.0-37.0); MCV 88.7 fL (80.0-100.0); MONOCYTES 11.8 % (2-11); NEUTROPHILS 72.4 % (40-80); RBC 4.06 10x6/uL (4.20-6.10); RDW 14.8 % (11.5-14.5); WBC 8.6 10x3/uL (4.8-10.8)
[2017-10-26 10:08] LABS: ANION GAP 14.8 mmol/L (8-16); CALCIUM 8.7 mg/dL (8.5-10.1); CARBON DIOXIDE 26.9 mmol/L (21.0-32.0); PHOSPHOROUS 5.6 mg/dL (2.5-4.9); POTASSIUM - SERUM 3.7 mmol/L (3.5-5.1)
[2017-10-26 10:23] LABS: PLATELET COUNT 236 10x3/uL (130-400)
[2017-10-26 11:03] VITALS: BP 151/77; Ht 182.9 cm; Wt 88.6 kg
[2017-10-26 11:14] LABS: APTT 34.4 SECONDS (22.8-39.4); INR 1.17 (0.85-1.17); PROTIME 14.5 SECONDS (11.6-15.0)
== END 2017-10-26 14:55 | disposition home or self-care (01) ==
LOC: D.OPS 08:54 → D.RAD 08:54 → D.OPS 14:55
PROVIDERS: Specialist; Thoracic Surgery (Cardiothoracic Vascular Surgery)
DX: J90 Pleural effusion, not elsewhere classified (principal); Z95.1 Presence of aortocoronary bypass graft; Z01.812 Encounter for preprocedural laboratory examination

== ENCOUNTER → 2017-11-02 11:30 | Outpatient (CLI) | payer MEDICARE, OTHER ==
[2017-10-26 11:03] VITALS: BMI 26.5
[2017-11-02 12:07] LABS: HEMATOCRIT 34.8 % (42.0-54.0); HEMOGLOBIN 11.1 g/dL (13.5-17.5); MCH 27.8 pg (26.0-34.0); MCHC 31.9 g/dL (31.0-37.0); RDW 14.7 % (11.5-14.5); WBC 6.5 10x3/uL (4.8-10.8)
[2017-11-02 12:19] LABS: ALBUMIN 3.2 g/dL (3.4-5.0); ANION GAP 15.9 mmol/L (8-16); BILIRUBIN - TOTAL 0.51 mg/dL (0.2-1.3); CALCIUM 8.8 mg/dL (8.5-10.1); CARBON DIOXIDE 24.9 mmol/L (21.0-32.0); CREATININE - SERUM 6.2 mg/dL (0.6-1.3); POTASSIUM - SERUM 3.8 mmol/L (3.5-5.1); PROTEIN - SERUM 7.3 g/dL (6.4-8.2)
== END | disposition home or self-care (01) ==
LOC: D.LAB 10:00 → D.RAD 10:15 → D.LAB 11:30
PROVIDERS: Internal Medicine Cardiovascular Disease
DX: J91.8 Pleural effusion in other conditions classified elsewhere (principal); D64.9 Anemia, unspecified

== ENCOUNTER → 2017-11-23 10:03 | Outpatient (CLI) | payer MEDICARE, OTHER ==
[2017-10-26 11:03] VITALS: BMI 26.5
== END | disposition home or self-care (01) ==
LOC: D.RAD 08:15
DX: J91.8 Pleural effusion in other conditions classified elsewhere (principal)

== ENCOUNTER → 2018-04-26 10:24 | Outpatient (CLI) | payer MEDICARE, OTHER ==
[2017-10-26 11:03] VITALS: BMI 26.5
== END | disposition home or self-care (01) ==
LOC: D.RAD 08:00
DX: J90 Pleural effusion, not elsewhere classified (principal)

== ENCOUNTER → 2018-09-21 14:52 | Outpatient (CLI) | payer MEDICARE, OTHER ==
[2017-10-26 11:03] VITALS: BMI 26.5
[~2018-09-21 14:52] MED LIST changes: +ATARAX 25 MG TA25 MG PO; +FERROUS SULFAT325 MG PO; +LEVOFLOXACIN500 MG PO; +MEGACE40 MG PO; +METOLAZONE5 MG PO; +MIRALAX17 GM PO; +PHOSLO667 MG PO
== END | disposition home or self-care (01) ==
LOC: D.RAD 14:52
DX: N18.6 End stage renal disease (principal); D63.1 Anemia in chronic kidney disease; I25.701 Atherosclerosis of coronary artery bypass graft(s), unspecified, with angina pectoris with documented spasm

== ENCOUNTER 2018-10-05 10:57 | Day surgery (SDC) | payer MEDICARE, OTHER ==
[~2018-10-05] VITALS: Ht 182.9 cm; Wt 88.5 kg
[~2018-10-05 10:57] MED LIST changes: -ATARAX 25 MG TA25 MG PO; -FERROUS SULFAT325 MG PO; -LEVOFLOXACIN500 MG PO; -MEGACE40 MG PO; -METOLAZONE5 MG PO; -MIRALAX17 GM PO; -PHOSLO667 MG PO
[2018-10-05 11:44] LABS: BASOPHILS 0.6 % (0-2); EOSINOPHILS 5.4 % (0-7); HEMATOCRIT 28.9 % (42.0-54.0); HEMOGLOBIN 9.8 g/dL (13.5-17.5); IMMATURE GRANULOCYTES 0.3 % (0-5); LYMPHOCYTES 21.6 % (15-50); MCHC 33.9 g/dL (31.0-37.0); MCV 85.5 fL (80.0-100.0); MONOCYTES 8.9 % (2-11); NEUTROPHILS 63.2 % (40-80); RBC 3.38 10x6/uL (4.20-6.10); RDW 13.6 % (11.5-14.5); WBC 8.6 10x3/uL (4.8-10.8)
[2018-10-05 11:54] LABS: ANION GAP 20.4 mmol/L (8-16); CALCIUM 9.1 mg/dL (8.5-10.1); CARBON DIOXIDE 24.3 mmol/L (21.0-32.0); CREATININE - SERUM 11.6 mg/dL (0.6-1.3); POTASSIUM - SERUM 3.7 mmol/L (3.5-5.1)
[2018-10-05 11:55] LABS: APTT 29.7 SECONDS (22.8-39.4); INR 1.1 (0.85-1.17); PROTIME 13.7 SECONDS (11.6-15.0)
[2018-10-05 11:56] LABS: PLATELET COUNT 109 10x3/uL (130-400)
[2018-10-05] MEDS ORDERED: LOPRESSOR25 MG PO (13:11)
[2018-10-05] MEDS ORDERED: HYDRALAZINE HCL50 MG PO (13:11)
[2018-10-05] MEDS ORDERED: FERROUS SULFAT325 MG PO (13:12)
[2018-10-05 13:21] VITALS: Ht 182.9 cm; Wt 88.5 kg
[2018-10-05] MEDS ORDERED: MIRALAX17 GM PO (16:27)
[2018-10-05] MEDS ORDERED: FLOMAX0.4 MG PO (16:30)
[2018-10-05] MEDS ORDERED: HYDROCODON-ACE1 EAC7 PO (16:31)
--- NOTE | 2018-10-05 19:45 | NUR ---
PATIENT AMBULATES TO BATHROOM WITHOUT DIZZINESS OR UNSTEADINESS AND VOIDS MODERATE AMOUNT IN TOILET WITHOUT DIFFICULTY. ABDOMINAL DRESSINGS C/D/I. RIGHT HAND PIV DC'D WITH TIP INTACT. PATIENT DRESSING IN PERSONAL CLOTHING WITH SPOUSE ASSISTANCE
--- NOTE | 2018-10-05 20:00 | NUR ---
DISCHARGED HOME VIA WHEELCHAIR TO PRIVATE VEHICLE WITH SPOUSE
--- NOTE | 2018-10-12 16:17 | OP ---
PATIENT NAME: DEBORAH RAZA MEDICAL RECORD: [id number] :46 LOCATION:[facility] ADMISSION DATE: SURGEON: IJEOMA SALGADO MD DATE OF OPERATION: 10/05/2018 REFERRED BY: Jose Corona MD PREOPERATIVE DIAGNOSES: Chronic kidney disease stage V and possible asymptomatic left inguinal hernia. POSTOPERATIVE DIAGNOSES: Chronic kidney disease stage V and initial reducible small left indirect inguinal hernia. OPERATION PERFORMED: Laparoscopic insertion of a peritoneal dialysis catheter followed by open anterior repair with patch and plug technique of the indirect inguinal hernia on the left. SURGEON: Ijeoma Salgado MD ANESTHESIA: General with LMA per [employer] CREWMEMBER. PREOPERATIVE NOTE: Mr. Raza is a 68-year-old white male patient from [place], [place] who has worsening renal insufficiency and is anticipated that he will require dialysis fairly soon and CKD V. He hopes to do peritoneal dialysis and is brought to the hospital today for implantation of a peritoneal dialysis catheter. I have discussed with him the possibility of an inguinal hernia being found and that it should be repaired at the same time if he agrees and he has. Under general anesthesia in supine position, the patient was prepped and draped in a sterile manner. I made a small incision in the left upper quadrant and inserted a 5-mm Optiview XL type port with a 5 mm 0-degree laparoscope in place and surveyed the abdominal cavity after insufflation of carbon dioxide. I found no adhesions, no signs of inflammations or abnormalities. There was no omentum visible on the lower abdomen and no adhesions. I then made a paramedian type, but small incision just to the right of the umbilicus and carried that incision down to the anterior rectus sheath. I chose a right-sided dual-cuff swan neck catheter and measured from the top of the pubis to the site that I wanted the Dacron felt cuff to be finally positioned just beneath the anterior rectus sheath and that was how I identified the site for incision. With the abdomen insufflated and with laparoscopic monitoring, I first inserted a needle straight through the rectus muscle, but not through the peritoneum and then angled this to slide down in the preperitoneal space as far as possible and towards the midline before penetrating the peritoneum and inserting a guidewire. I then passed over the guidewire, a peel-away introducer sheath and this resulted in the formation of a very nice retrorectus tunnel. The dialysis catheter was carefully washed with saline and flushed with saline. The Dacron felt cuffs were submersed and all of the air bubbles cleared and the catheter itself irrigated with heparinized saline. The coiled end of the catheter was straightened temporarily and passed through the peel-away sheath into the pelvis and the peel-away sheath removed. The deeper of the 2 Dacron felt cuffs was placed just beneath the rectus sheath and a pursestring suture of 0 Vicryl was placed to prevent leaks. The catheter exit site had been decided upon preop and marked. I made a tunnel arching upward and down to that site in the right lower quadrant, which was above his belt line. The catheter was pulled through that tunnel and exit site and the Dacron felt cuff left 3 or 4 cm above the exit OPERATIVE REPORT [id number] DEBORAH RAZA incision. The catheter was then flushed with 1000 cc of saline and then drained, the fluid really drained out easily. We easily recovered 700 cc. The catheter was then flushed with 20 cc of Hep-Lock solution, clamped and capped. A BioPatch was placed around the catheter at the entry site and further sterile dry dressings over this with also using Cavilon skin prep to increase adhesion. The paramedian incision was first infiltrated with 0.25% Marcaine and then closed with interrupted inverted 3-0 Vicryl and a running intracuticular 4-0 Monocryl, Dermabond glue and dressed with Maxorb AG and Tegaderm. The laparoscopic port and laparoscope were removed and the punctures sites in the left upper quadrant closed with a single interrupted inverted 3-0 Vicryl and then glue, Maxorb AG, and Tegaderm. I then made an oblique incision over the left inguinal canal and carried the incision down to the anterior oblique aponeurosis. Hemostasis was obtained with electrocautery. The incision turned out to be placed too high, which made it a little more difficult, but did not prevent an excellent repair. The external oblique aponeurosis was opened through the external ring and the spermatic cord mobilized. The patient was found to have a small fluid-filled indirect inguinal hernia sac, which was easily dissected from the cord structures and reduced back up into the preperitoneal space. I used a Bard Marlex light plug and patch, a size extra large fitting the plug into the internal inguinal ring and suturing it in place with several interrupted simple 3-0 Vicryls. The patch was cut in order to embrace the cord and form a new internal ring. It was laid on the floor of the inguinal canal and sutured circumferentially with interrupted 3-0 Vicryl. The wound was irrigated with Ancef/gentamicin solution and the cord structures were placed in normal anatomic position and the anterior oblique aponeurosis repaired over that with interrupted simple 3-0 Vicryl. The wound was irrigated again with saline and then infiltrated well with 0.25% Marcaine without epinephrine and the skin was closed with a running intracuticular 4-0 Monocryl and Dermabond glue. It was dressed with Maxorb Ag, Tegaderm, and Cavilon skin prep. The patient was then awakened and taken to the recovery room in stable condition. Blood loss was about 10 cc wraps and unreplaced. Sponges, instruments, and needles were accounted for. No specimen was submitted for histopathology. PLAN: For the patient to go home today with prescriptions for MiraLax and [place] and also for some Flomax to treat symptoms of urinary retention should he have them. He is given my personal cell number that he can call over the weekend or nights and holidays, etc. and also my office telephone number to call during office hours. He is to resume activities as tolerated. I have advised that he take MiraLax daily to prevent constipation and generally resume activities as he feels able. I will see him back in my office in about 10 days. He will go to have his PD catheter flushed on Monday next week. TRANSINT:[id number] Voice Confirmation ID: [id number] DOCUMENT ID: [id number] OPERATIVE REPORT [id number] DEBORAH RAZA JAMES MD at 1617 CC: JOSE CORONA MD [id number] DICTATION DATE: 10/05/18 165 PILOT PLANT TECHNICIAN: 10/06/18 0017 [facility] 10/05/18 [facility] [address] [place] [address]
== END 2018-10-05 20:00 | disposition home or self-care (01) ==
LOC: D.OPS 10:57
PROVIDERS: Surgery
DX: I12.0 Hypertensive chronic kidney disease with stage 5 chronic kidney disease or end stage renal disease (principal); N18.5 Chronic kidney disease, stage 5; E78.5 Hyperlipidemia, unspecified; I48.0 Paroxysmal atrial fibrillation; K40.90 Unilateral inguinal hernia, without obstruction or gangrene, not specified as recurrent; I25.119 Atherosclerotic heart disease of native coronary artery with unspecified angina pectoris

== ENCOUNTER 2018-10-10 17:13 | Inpatient (IN) | payer MEDICARE, OTHER ==
[~2018-10-10] VITALS: Ht 182.9 cm; Wt 82.4 kg
[~2018-10-10 17:13] MED LIST changes: +FERROUS SULFAT325 MG PO; +MIRALAX17 GM PO
[2018-10-10 18:13] VITALS: BP 170/64; BMI 26.6
--- NOTE | 2018-10-10 18:26 | NUR ---
PT RECIEVED. ASSESSMENT AND HX FINISHED PER FLOW SHEET. VSS. STATED. FAMILY AT BEDSIDE QUESTIONS ANSWERED. AWAITING ORDERS AT THIS TIME. PT DENIES NEEDS RESTING COMFORTABLY WILL CONTINUE TO MONTIOR
[2018-10-10 19:00] VITALS: BP 159/80
[2018-10-10 20:00] VITALS: BP 174/81
--- NOTE | 2018-10-10 20:06 | MORECARE ---
CASE MANAGEMENT DISCHARGE SUMMARY PATIENT: DEBORAH RUCKER GENE UNIT: [id number] ADM DATE: 10/10/18 AGE: 68 : 48 SEX: M ROOM/BED: D.2312 AUTHOR: HARDEEP SHANNON PHYSICIAN: REFERRING PHYSICIAN: JITENDRA NELSON MD DATE OF SERVICE: 10/10/18 Discharge Plan Patient Name: DEBORAH RUCKER [facility] [facility] 1950 Planned Disposition: Home Anticipated Discharge Date: Discharge Date: Expected LOS: Initial Reviewer: [email or web address] Initial Review Date: 10/10/2018 Generated: 10/10/18 9:05 pm Patient Name: DEBORAH RUCKER Page 11600 at 2006 All edits/amendments must be made on the electronic document DICTATION DATE: 10/10/182004 CLAIMS ACCOUNT MANAGER: LIZ 10/10/182004 RPT#: [id number] DC DATE: STATUS: ADM IN [facility] [address] [place] [address] END OF REPORT
--- NOTE | 2018-10-10 20:13 | MORECARE ---
CASE MANAGEMENT DISCHARGE SUMMARY PATIENT: DEBORAH RUCKER GENE UNIT: [id number] ADM DATE: 10/10/18 AGE: 68 : 48 SEX: M ROOM/BED: D.2312 AUTHOR: HARDEEP SHANNON PHYSICIAN: REFERRING PHYSICIAN: JITENDRA NELSON MD DATE OF SERVICE: 10/10/18 Discharge Plan Patient Name: DEBORAH RUCKER [facility] [facility] 1950 Planned Disposition: Home Anticipated Discharge Date: Discharge Date: Expected LOS: Initial Reviewer: [email or web address] Initial Review Date: 10/10/2018 Generated: 10/10/18 9:12 pm DCPIA - Discharge Planning Initial Assessment Updated by [email or web address]: Ani Damon on 10/10/18 8:07 pm * Is the patient Alert and Oriented? Yes * How many steps to enter\exit or inside your home? * PCP CAN'T REMEMBER? * [facility] * Preadmission Environment Home with Family * ADLs Independent * Equipment Wheelchair * Other Equipment CANE * List name and contact numbers for known caregivers / representatives who currently or will assist patient after discharge: TORRES RUCKER - SPOUSE- [phone] * Verbal permission to speak to the caregivers and representatives has been obtained from the patient. Yes * Community resources currently utilized None * Additional services required to return to the preadmission environment? No * Can the patient safely return to the preadmission environment? Yes * Has this patient been hospitalized within the prior 30 days at any hospital? Yes Last DP export: 10/10/18 7:06 p Patient Name: DEBORAH RUCKER Page 85299 at 2013 All edits/amendments must be made on the electronic document DICTATION DATE: 10/10/182011 CONTROL AND RECOVERY SPECIAL TACTICS: LIZ 10/10/182011 RPT#: [id number] DC DATE: STATUS: ADM IN [facility] [address] [place] [address] END OF REPORT
--- NOTE | 2018-10-10 20:20 | MORECARE ---
CASE MANAGEMENT DISCHARGE SUMMARY PATIENT: DEBORAH RUCKER GENE UNIT: [id number] ADM DATE: 10/10/18 AGE: 68 : 48 SEX: M ROOM/BED: D.2312 AUTHOR: SHIVA,DOC PHYSICIAN: REFERRING PHYSICIAN: JITENDRA NELSON MD DATE OF SERVICE: 10/10/18 Discharge Plan Patient Name: DEBORAH RUCKER Facility: [facility]:[place] : 1950 Planned Disposition: Home Anticipated Discharge Date: Discharge Date: Expected LOS: Initial Reviewer: [email or web address] Initial Review Date: 10/10/2018 Generated: 10/10/18 9:20 pm Comments DCP- Discharge Planning Updated by [email or web address]: Ani Damon on 10/10/18 7:[address] Patient Name: DEBORAH RUCKER Admission Status: Urgent Accout number: [id number] Admission Date: 10-10-2018 : 1950 Admission Diagnosis: Attending: JITENDRA NELSON Current LOS: 1 Anticipated DC Date: Planned Disposition: Home Primary Insurance: MEDICARE A & B Discharge Planning Comments: CM met with patient at bedside after obtaining verbal consent. Patient states he plans on returning home after discharge with his . Patient was recently admitted for PD cath placement. Patient states he will have family transport him home via private vehicle. Patient may need dialysis setup for outpatient if required. Patient denies any discharge needs at this time. CM will continue to follow and assist as needed for discharge planning / needs. Staffing Account Manager: Ani Damon DCPIA - Discharge Planning Initial Assessment Updated by [email or web address]: Ani Damon on 10/10/18 8:07 pm * Is the patient Alert and Oriented? Yes * How many steps to enter\exit or inside your home? * PCP CAN'T REMEMBER? * Pharmacy [facility] * Preadmission Environment Home with Family * ADLs Independent * Equipment Wheelchair * Other Equipment CANE * List name and contact numbers for known caregivers / representatives who currently or will assist patient after discharge: TORRES RUCKER - SPOUSE- [phone] * Verbal permission to speak to the caregivers and representatives has been obtained from the patient. Yes * Community resources currently utilized None * Additional services required to return to the preadmission environment? No * Can the patient safely return to the preadmission environment? Yes * Has this patient been hospitalized within the prior 30 days at any hospital? Yes Last DP export: 10/10/18 7:12 p Patient Name: DEBORAH RUCKER Page 16944 at 2020 All edits/amendments must be made on the electronic document DICTATION DATE: 10/10/182018 TILLER MAN: LIZ 10/10/182018 RPT#: [id number] DC DATE: STATUS: ADM IN [facility] [address] [place] [address] END OF REPORT
[2018-10-10 21:00] VITALS: BP 169/69
[2018-10-10 22:00] VITALS: BP 187/69
[2018-10-10 22:00] LABS: BASOPHILS 0.3 % (0-2); HEMATOCRIT 24.8 % (42.0-54.0); HEMOGLOBIN 8.2 g/dL (13.5-17.5); IMMATURE GRANULOCYTES 0.2 % (0-5); LYMPHOCYTES 9.7 % (15-50); MCH 28.4 pg (26.0-34.0); MCHC 33.1 g/dL (31.0-37.0); MCV 85.8 fL (80.0-100.0); MEAN PLATELET VOLUME 9.4 fL (7.4-10.4); MONOCYTES 13.7 % (2-11); NEUTROPHILS 75.1 % (40-80); PLATELET COUNT 107 10x3/uL (130-400); RBC 2.89 10x6/uL (4.20-6.10); RDW 13.6 % (11.5-14.5); WBC 12.1 10x3/uL (4.8-10.8)
[2018-10-10 22:11] LABS: ANION GAP 18.5 mmol/L (8-16); CALCIUM 8.1 mg/dL (8.5-10.1); CARBON DIOXIDE 24.8 mmol/L (21.0-32.0); POTASSIUM - SERUM 3.3 mmol/L (3.5-5.1)
[2018-10-10 23:00] VITALS: BP 170/66
[2018-10-11] VITALS (19 sets, daily range): BP systolic 129–163; BP diastolic 56–90; Ht 182.9 cm; Wt 82.4 kg
[2018-10-11 05:14] LABS: BASOPHILS 0.2 % (0-2); EOSINOPHILS 1.4 % (0-7); HEMATOCRIT 23.9 % (42.0-54.0); HEMOGLOBIN 7.9 g/dL (13.5-17.5); IMMATURE GRANULOCYTES 0.2 % (0-5); LYMPHOCYTES 8.6 % (15-50); MCH 28.7 pg (26.0-34.0); MCHC 33.1 g/dL (31.0-37.0); MCV 86.9 fL (80.0-100.0); MEAN PLATELET VOLUME 9.5 fL (7.4-10.4); MONOCYTES 17.9 % (2-11); NEUTROPHILS 71.7 % (40-80); PLATELET COUNT 112 10x3/uL (130-400); RBC 2.75 10x6/uL (4.20-6.10); RDW 13.6 % (11.5-14.5); WBC 12.5 10x3/uL (4.8-10.8)
[2018-10-11 05:34] LABS: ANION GAP 17.3 mmol/L (8-16); CARBON DIOXIDE 24.8 mmol/L (21.0-32.0); POTASSIUM - SERUM 3.1 mmol/L (3.5-5.1)
--- NOTE | 2018-10-11 07:00 | NUR ---
REC'D REPORT AND RESUMED CARE, AWAKE AND CONFUSED, O2 VIA NC AT 2L, VSS, LRT FA FISTULA IN PLACE, BRUIE AND THRILL NOTED, LLQ PD CATH IN PLACE DRESSING CDI, LLQ ABDOMEN WITH CDI DRESSING, RIGHT GROIN DRESSING CDI, PULSES TO RIGHT LOWER EXTREMETY NOTED, ASSESSMENT COMPLETED PER FLOWSHEET, CALL LIGHT IN REACH, REPOSITIONED UP AND TO BACK WITH HEELS FLOATED
[2018-10-11] MEDS ORDERED: METOLAZONE5 MG PO (07:34)
[2018-10-11] MEDS ORDERED: ATARAX 25 MG TA25 MG PO (07:35)
--- NOTE | 2018-10-11 07:40 | NUR ---
BREAKFAST TRAY TO BEDSIDE ASSISTED WITH SET UP AND ENCOURAGED EATING, BITES AND SIPS ONLY
--- NOTE | 2018-10-11 09:30 | NUR ---
MORNING MEDS GIVNE PER OCT FLOWSHEET, BP MEDS HELD PER TRACI, RENAL EMERY WHEEL WORKER FOR PENDING HD TODAY
--- NOTE | 2018-10-11 11:00 | NUR ---
RESTING WITH NO SIGN OF DISTRESS, VSS, CONTINUES AT BEDSIDE, NO ACUTE CHANGE FROM PREVIOUS ASSESSMENT, REPOSITIONED UP AND TO BACK PER REQUEST, EDUCATED RE: BED SORES, VERBALIZED UNDERSTANDING
--- NOTE | 2018-10-11 11:30 | NUR ---
LUNCH TRAY TO BEDSIDE, ASSISTED WITH SET UP AND EATING, BITES AND SIPS ONLY
--- NOTE | 2018-10-11 15:20 | NUR ---
HD NURSE AT BEDSIDE, SETTING UP FOR PENDING DIALYSIS
--- NOTE | 2018-10-11 17:11 | NUR ---
REPORT CALLED TO AKOSUA ON MED 2 FOR PENDING TRANSFER POST HD, AT SHIFT CHANGE
--- NOTE | 2018-10-11 18:41 | NUR ---
HD TECH UNABLE TO COMPLETE HD, PATIENT WITH ARM OVERHEAD AND DISLOGED NEEDLE, AND UNABLE TO ACCESS WITH SECOND ATTEMPT, PC TO TRACI VELASQUEZ APN, PLEASE DRAW H/H BEFORE MOVING TO 2138
[2018-10-11 19:48] LABS: HEMATOCRIT 26.4 % (42.0-54.0); HEMOGLOBIN 8.8 g/dL (13.5-17.5)
--- NOTE | 2018-10-11 19:55 | NUR ---
H/H DRAWN BY LAB, TRANSFERRED TO 2137 VIA BED WITH PERSONNELX2, AWAKE A0N ALERT, AND PRIMARY NURSE AT BEDSIDE,
--- NOTE | 2018-10-11 20:20 | NUR ---
PT ARRIVED TO ROOM 2138 WITH SPOUSE AT BEDSIDE FROM DIALYSIS. REPORT FROM ICU NURSE IS THAT DURING HD THROUGH LEFT AVF THE NEEDLE CAME OUT AND DIALYSIS NURSE WAS UNABLE TO FINISH FULL DIALYSIS TREATMENT. ASSISTED PT TO NEW BED WITH 3 PEOPLE ASSISTING TOTAL. PT LEFT KNEE SWOLLEN AND PT COMPLAINS OF SEVERE PAIN WHEN TRYING TO USE IT. RIGHT FOREARM IV DRSG CDI, PATENT. IT WAS REPORTED BY ICU NURSE THAT HIS PD CATH IS NOT TO BE USED AT THIS TIME,OR TOUCHED. ICU NURSE MARIEL STATES THERE IS PD FLUID INDWELLING AT THIS TIME. PT IS AAO X3, BEDLOW AND CALL LIGHT IN REACH. AT BEDSIDE. PT WILL CALL FOR ASSIST WHEN NEEDED. WILL CHECK ORDERS AND CPOC
--- NOTE | 2018-10-11 23:05 | NUR ---
PAGED RENAL LEACHER, PT COMPLAINS OF PAIN IN LEFT KNEE THAT IS NOT DECREASED WITH ORDERED ULTRAM. PT IS RESTING AT THIS TIME. AT BEDSIDE. PT HAS NO S/S OF DISTRESS. BEDLOW AND CALL LIGHT IN REACH. WILL CPOC
[2018-10-12] VITALS: BP 155/61
--- NOTE | 2018-10-12 00:20 | NUR ---
SPOKE WITH TRACI VELASQUEZ REGARDING PT PAIN. ULTRAM D/C'D AND NORCO 5/325 Q6H STARTED. UPDATED TRACI ON H&H. NORCO GIVEN FOR LEFT KNEE PAIN. SPOUSE CLEANED PT, GAVE A PARTIAL BEDBATH. PT ALERT AND ORIENTED X2, HAS NO S/S OF DISTRESS. BEDLOW AND CALL LIGHT IN REACH. WILL CPOC
[2018-10-12 04:00] VITALS: BP 139/58
[2018-10-12 06:25] LABS: ANION GAP 17.1 mmol/L (8-16); CALCIUM 8.2 mg/dL (8.5-10.1); CARBON DIOXIDE 25.4 mmol/L (21.0-32.0); CREATININE - SERUM 9.9 mg/dL (0.6-1.3); HEMATOCRIT 24.8 % (42.0-54.0); HEMOGLOBIN 8.6 g/dL (13.5-17.5); LYMPHOCYTES 9.1 % (15-50); MCH 29.6 pg (26.0-34.0); MCHC 34.7 g/dL (31.0-37.0); MCV 85.2 fL (80.0-100.0); MEAN PLATELET VOLUME 9.1 fL (7.4-10.4); NEUTROPHILS 73.4 % (40-80); PHOSPHOROUS 5.1 mg/dL (2.5-4.9); PLATELET COUNT 121 10x3/uL (130-400); POTASSIUM - SERUM 3.5 mmol/L (3.5-5.1); RBC 2.91 10x6/uL (4.20-6.10); RDW 12.6 % (11.5-14.5); WBC 12.4 10x3/uL (4.8-10.8)
--- NOTE | 2018-10-12 07:05 | NUR ---
PT PULLING AT TELEMETRY AND PULLED OFF PD DRSG, CLEANED AREA AND PLACED NEW DRSG AND PUT TELEMETRY BACK ON. PT IS CONFUSED. ALERT TO NAME AND . AT BEDSIDE. PT WILL CALL FOR ASSIST WHEN NEEDED. WILL CPCO
[2018-10-12 07:31] LABS: HEPATITIS C ANTIBODY 0.1 S/CO RAT (0.0-0.9)
--- NOTE | 2018-10-12 08:00 | NUR ---
AM ROUNDS COMPLETED. INTRODUCED MYSELF TO PT PRIMARY RN FOR TODAYS SHIFT. SHIFT ASSESSMENT COMPLETED. PT IS PLEASANTLY CONFUSED AND IS CONTINUOUSLY TRYING TO PULL AT HIS PD CATHETER AND DRSG. ROUNDING AND WANTS IT COVERED TO PREVENT DAMAGE. CALLED MATERIALS AND WILL PLACE A ABDOMINAL BINDER. NO IMMEDIATE NEEDS AT THIS TIME. WILL CHECK ORDERS AND CPOC.
[2018-10-12 08:02] LABS: % SATURATION 13 % (15-55); IRON 18 ug/dl (35-150); TOTAL IRON BIND CAPACITY 135 ug/dl (260-445); UNSAT IRON BIND CAPACITY 117 ug/dl (150-375)
[2018-10-12 08:20] VITALS: BP 161/59
--- NOTE | 2018-10-12 12:00 | NUR ---
AT BEDSIDE ASSISTED PT WITH EATING LUNCH. PT STILL BARELY EATING BUT DID EAT ABOUT 25% OF LUNCH. PT IS STILL PULLING AT HIS TELEMETRY LINES AND PD CATH AND TRYING TO TAKE OFF HIS ABDOMINAL BINDER SO WE PULLED HIM UP IN BED AND REPOSITIONED THE VELCRO TO BE IN THE BACK SO PT CANT PULL IT OFF. PT VERBALIZED HE WAS SORRY HOWEVER HE IS CONFUSED AND JUST NEEDS FREQUENT CUING. NO FURTHER NEEDS AT THIS TIME. CL IN REACH, BED IN LOWEST, SIDE RAILS X2. WILL CTM.
--- NOTE | 2018-10-12 12:01 | NUR ---
NUTRITION F/U DIET ADVANCED TO FULL LIQUID. NOTE PT AWAITING TRANSFER TO [facility]. WILL PROVIDE CURRENT DIET. RD FOLLOWING
[2018-10-12 13:01] VITALS: BP 148/60
--- NOTE | 2018-10-12 16:00 | NUR ---
PT WANTING TO GET UP OOB R/T BEING CONFUSED AND ASKING ABOUT TIEING HIS SHOES AND LEAVING. WAS GOING TO LET PT SIT UP IN A W/C FOR A LITTLE BIT HOWEVER HIS L.KNEE PAIN IS TOO SEVERE AND HE WONT BEND HIS LEG CURRENTLY. PULLED PT UP IN BED AND REPOSITIONED FOR COMFORT AND PROVIDED WITH TYLENOL TO HELP WITH THE PAIN AND WILL WAIT FOR PHYSICAL THERAPY TO SEE AND EVALUATE. PT VOICED THANKS AND DENIES ANY NEEDS. CL IN REACH, BED IN LOWEST, SIDE RAILS X2 AND BUILT IN BED ALARM ON. WILL CTM.
[2018-10-12 20:00] VITALS: BP 156/59
[2018-10-13 00:05] VITALS: BP 153/60
--- NOTE | 2018-10-13 00:17 | NUR ---
PT VERY CONFUSED AND DISORIENTED. AT BEDSIDE CONCERNED FOR PT. BED LOW CALL LIGHT WITHIN REACH. WILL CONTINUE TO MONITOR,
[2018-10-13 04:00] VITALS: BP 161/59
--- NOTE | 2018-10-13 05:51 | NUR ---
I AGREE WITH PRIOR ASSESSMENT.
[2018-10-13 06:01] LABS: HEMATOCRIT 23.8 % (42.0-54.0); MCH 28.9 pg (26.0-34.0); MCHC 33.6 g/dL (31.0-37.0); MCV 85.9 fL (80.0-100.0); MEAN PLATELET VOLUME 9.2 fL (7.4-10.4); PLATELET COUNT 127 10x3/uL (130-400); RBC 2.77 10x6/uL (4.20-6.10); RDW 13.3 % (11.5-14.5); WBC 12.2 10x3/uL (4.8-10.8)
[2018-10-13 06:15] LABS: CALCIUM 8.1 mg/dL (8.5-10.1); CARBON DIOXIDE 23.6 mmol/L (21.0-32.0); CREATININE - SERUM 10.2 mg/dL (0.6-1.3); PHOSPHOROUS 4.8 mg/dL (2.5-4.9); POTASSIUM - SERUM 3.6 mmol/L (3.5-5.1)
[2018-10-13 08:24] LABS: EOSINOPHILS 3 % (0-7); LYMPHOCYTES 12 % (15-50); MONOCYTES 9 % (2-11); NEUTROPHILS 75 % (40-80)
[2018-10-13 08:25] LABS: HYPOCHROMASIA 2+; PLATELET ESTIMATE NORMAL; ROULEAUX 1+
[2018-10-13 09:13] LABS: FOLATE (FOLIC ACID) - SERUM 17.1 ng/mL (>3.0)
[2018-10-13 09:57] VITALS: BP 150/56
[2018-10-13 17:45] VITALS: BP 145/60
[2018-10-13 19:11] LABS: APPEARANCE CLEAR (CLEAR); COLOR YELLOW (YELLOW); GLUCOSE 50 mg/dL (NEGATIVE); NITRITE NEGATIVE (NEGATIVE); PROTEIN 2+ mg/dL (NEGATIVE)
[2018-10-13 19:12] LABS: BILIRUBIN NEGATIVE (NEGATIVE); KETONE NEGATIVE (NEGATIVE); RED CELLS - URINE 0-5 /hpf (0-5); UROBILINOGEN NORMAL (NORMAL); WHITE CELLS - URINE NSEEN /hpf (0-5)
[2018-10-13 20:00] VITALS: BP 146/63
--- NOTE | 2018-10-13 21:10 | NUR ---
AWAKE ORIENTED TO NAME ONLY. AT BEDSIDE. INITIAL ASSESSMENTS PER NSG FLOWCHART DONE. IV IN R FA INTACT SL. TELEMETRY SHOWS 82 SR. ADMIN TYLENOL FOR C/O L KNEE PAIN AND ELEVATED TEMP AT 99.9 F. NO OTHER NEEDS VOICED.
--- NOTE | 2018-10-13 23:00 | NUR ---
PATIENT'S STATED PATIENT IS PULLING OFF ABD BINDER, ABD BINDER, IV AND TRYING TO GET OUT OF BED. CALLED AND RECEIVED ORDER FROM TOSHIA MUHAMMAD APN TO GIVE ATIVAN 1MG IV FOR HIS AGITATION.
[2018-10-14] VITALS: BP 139/60
--- NOTE | 2018-10-14 00:18 | NUR ---
PULLED UP IN BED. HAD PULLED OFF TELEMETRY LEADS AGAIN. INFORMED WET POUR SUPERVISOR.
[2018-10-14 04:00] VITALS: BP 153/67
--- NOTE | 2018-10-14 05:00 | NUR ---
CHANGED BEDDING DUE TO INCONTINENCE OF URINE.
[2018-10-14 06:05] LABS: BASOPHILS 0.3 % (0-2); EOSINOPHILS 3.8 % (0-7); HEMATOCRIT 26.6 % (42.0-54.0); HEMOGLOBIN 8.8 g/dL (13.5-17.5); IMMATURE GRANULOCYTES 0.7 % (0-5); LYMPHOCYTES 15.6 % (15-50); MCH 28.6 pg (26.0-34.0); MCHC 33.1 g/dL (31.0-37.0); MCV 86.4 fL (80.0-100.0); MEAN PLATELET VOLUME 9.2 fL (7.4-10.4); NEUTROPHILS 59.6 % (40-80); RBC 3.08 10x6/uL (4.20-6.10); RDW 13.3 % (11.5-14.5); WBC 10.1 10x3/uL (4.8-10.8)
[2018-10-14 06:11] LABS: PLATELET COUNT 158 10x3/uL (130-400)
[2018-10-14 06:22] LABS: ANION GAP 18.2 mmol/L (8-16); CALCIUM 8.2 mg/dL (8.5-10.1); CARBON DIOXIDE 26.1 mmol/L (21.0-32.0); CREATININE - SERUM 8.4 mg/dL (0.6-1.3); POTASSIUM - SERUM 3.3 mmol/L (3.5-5.1)
--- NOTE | 2018-10-14 07:30 | NUR ---
A/A/OX1 TO PERSON ONLY. LANGUAGE IS GARBLED AND CONTINUES TO PICK AT ABD BINDER, IV WRAP, BLANKETS AND THROWING LEGS OVER SIDERAILS. REQUESTS HE BE GIVEN ATIVAN AND DONE.
[2018-10-14 08:33] VITALS: BP 143/58
[2018-10-14 13:26] VITALS: BP 148/58
[2018-10-14 17:01] VITALS: BP 133/55
--- NOTE | 2018-10-14 19:00 | NUR ---
IN WC BEING PUSHED AROUND THE HALLS BY HIS . DENIES ANY NEEDS.
--- NOTE | 2018-10-14 19:14 | NUR ---
RN ROUNDING DONE AND I AGREE WITH ASSESSMENT FROM JODI TERESA LPN.
--- NOTE | 2018-10-14 19:30 | NUR ---
ROOM FULL OF VISITORS. NO NEEDS VOICED.
--- NOTE | 2018-10-14 19:33 | NUR ---
PT HAS HAD A TOTAL TURN AROUND SINCE GTM STARTED TODAY FOR UTI. HE IS NOW ABLE TO HELP WHEN GETTING UP TO BSC. HE IS CLEAR A/OX4. REQUESTS GETTING UP IN W/C AND BEING TAKEN AROUND IN THE HALLWAYS. DENIES ANY PAIN OR PROBLEMS AT PRESENT TIME. SPEECH IS CLEAR AND IS VERY PLEASANT.
[2018-10-14 20:00] VITALS: BP 146/54
--- NOTE | 2018-10-14 22:40 | NUR ---
ADMIN ATIVAN 1MG IV PER REQUEST FOR RESTLESSNESS. VISITORS LEAVING ROOM.
[2018-10-15] VITALS: BP 136/67
--- NOTE | 2018-10-15 00:30 | NUR ---
RESTING WITH EYES CLOSED. HOOD FITTER PRESENT TAKING VS.
[2018-10-15 04:00] VITALS: BP 126/57
[2018-10-15 05:03] LABS: BASOPHILS 0.3 % (0-2); EOSINOPHILS 3.6 % (0-7); HEMATOCRIT 22.2 % (42.0-54.0); IMMATURE GRANULOCYTES 0.9 % (0-5); LYMPHOCYTES 18.2 % (15-50); MCH 28.8 pg (26.0-34.0); MCHC 33.3 g/dL (31.0-37.0); MCV 86.4 fL (80.0-100.0); MEAN PLATELET VOLUME 8.9 fL (7.4-10.4); MONOCYTES 15.2 % (2-11); NEUTROPHILS 61.8 % (40-80); PLATELET COUNT 158 10x3/uL (130-400); RBC 2.57 10x6/uL (4.20-6.10); RDW 13.2 % (11.5-14.5)
[2018-10-15 05:14] LABS: HEMOGLOBIN 7.4 g/dL (13.5-17.5)
[2018-10-15 05:17] LABS: ANION GAP 17.4 mmol/L (8-16); CALCIUM 7.9 mg/dL (8.5-10.1); CARBON DIOXIDE 25.9 mmol/L (21.0-32.0); CREATININE - SERUM 9.1 mg/dL (0.6-1.3); POTASSIUM - SERUM 3.3 mmol/L (3.5-5.1)
--- NOTE | 2018-10-15 06:00 | NUR ---
AWAKE. HIS IS TAPING DOWN DRSG OVER PD CATH. STATED HE HAD STARTED TO PICK AT THE TAPE. DENIES ANY NEEDS AT THIS TIME.
[2018-10-15 07:30] LABS: % SATURATION 19 % (15-55); IRON 23 ug/dl (35-150); TOTAL IRON BIND CAPACITY 118 ug/dl (260-445); UNSAT IRON BIND CAPACITY 95 ug/dl (150-375)
[2018-10-15 08:32] VITALS: BP 98/57
--- NOTE | 2018-10-15 09:28 | NUR ---
BLOOD IS READY AND CONSENTS SIGNED AND PLACED IN CHART. PT IS TO RECIEVE ON DIALYSIS. CALLED DIALYSIS AND THEY WILL GET MACHINES READY. PT HAD MODERATE AMOUNT OF DIARRHEA USED BEDSIDE COMMODE. ASSISTED PT BACK INTO BED AND CLEANED HIM UP. PULLED PT UP IN BED FOR COMFORT. AT BEDSIDE. PT DENIES ANY CURRENT PAIN OR NEEDS AT THIS TIME. CL IN REACH, BED IN LOWEST, SIDE RAILS X2. WILL CTM.
--- NOTE | 2018-10-15 10:10 | NUR ---
PT LEAVING FOR DIALYSIS AT THIS TIME VIA BED. NO CURRENT NEEDS. WILL CTM.
--- NOTE | 2018-10-15 10:45 | NUR ---
PT REMAINS IN DIALYSIS. DIALYSIS NURSE WAS ABLE TO GET HIS 2 UNITS OF PRBCS AND PROVIDED HIM WITH THEM ORDERED. NO CURRENT NEEDS. WILL CTM.
--- NOTE | 2018-10-15 12:10 | NUR ---
PT BACK FROM DIALYSIS SITTING UP IN BED RESTING QUIETLY VISITING WITH HIS FAMILY. PT DENIES ANY CURRENT PAIN OR NEEDS AND STATES DIALYSIS WENT WELL. CL IN REACH, WILL CTM.
[2018-10-15 15:43] VITALS: BP 110/69
--- NOTE | 2018-10-15 19:20 | NUR ---
ALERT/AWAKE ORIENTED TO NAME, PLACE, SITUATION. STILL SOME CONFUSION NOTED. HIS IS PRESENT IN ROOM. INITIAL ASSESSMENTS STARTED. IV IN RT FA INTACT SL. LT KNEE SWELLING FROM GOUT NOTED. STATES PAIN LEVEL AT 4/10 SCALE. L ARM FISTULA HAS POSITIVE BRUIT/THRILL. DENIES ANY NEEDS AT THIS TIME.
[2018-10-15 20:00] VITALS: BP 143/76
--- NOTE | 2018-10-15 22:55 | NUR ---
ALERT/AWAKE DENIES PAIN OR ANY NEEDS. FRIENDLY AND TALKATIVE, BUT STILL HAS SOME CONFUSION.
[2018-10-16] VITALS: BP 136/64
--- NOTE | 2018-10-16 01:50 | NUR ---
ADMIN ATIVAN 1MG IV PER REQUEST FOR C/O RESTLESSNESS.
[2018-10-16 04:00] VITALS: BP 141/62
--- NOTE | 2018-10-16 05:00 | NUR ---
PULLED OFF ABD DRESSING AND TRYING TO PULL OUT PD CATH. REPLACED DRSG AND ABD BINDER.
[2018-10-16 05:27] LABS: BASOPHILS 0.3 % (0-2); EOSINOPHILS 5.2 % (0-7); IMMATURE GRANULOCYTES 0.9 % (0-5); LYMPHOCYTES 20.1 % (15-50); MCH 28.7 pg (26.0-34.0); MCHC 33.3 g/dL (31.0-37.0); MCV 86.2 fL (80.0-100.0); MEAN PLATELET VOLUME 8.8 fL (7.4-10.4); MONOCYTES 11.6 % (2-11); NEUTROPHILS 61.9 % (40-80); PLATELET COUNT 171 10x3/uL (130-400); RDW 13.4 % (11.5-14.5); WBC 10.5 10x3/uL (4.8-10.8)
[2018-10-16 05:32] LABS: RBC 3.48 10x6/uL (4.20-6.10)
[2018-10-16 06:03] LABS: CALCIUM 8.7 mg/dL (8.5-10.1); CARBON DIOXIDE 26.1 mmol/L (21.0-32.0); CREATININE - SERUM 8.4 mg/dL (0.6-1.3); GENTAMICIN - TROUGH 2.6 ug/mL (0.5-2.0); PHOSPHOROUS 4.9 mg/dL (2.5-4.9); POTASSIUM - SERUM 3.1 mmol/L (3.5-5.1)
--- NOTE | 2018-10-16 08:27 | NUR ---
PT SITTING UP IN CHAIR AT BEDSIDE. FAMILY IN ROOM. BREAKFAST SERVED. PHOSLO TAKEN WITHOUT DIFFICULTY. VITALS STABLE. DENIES PAIN THIS MORNING, DRSG OVER PD CATH C/D/I. STATES SOME DISCOMFORT TO PD CATH. INFORMED PT THAT I WOULD CHANGE DRSG TODAY PRN. NO EDEMA NOTED. DENIES FURTHER CONCERNS AT THIS TIME. BED LOWERED AND LOCKED. CL IN REACH. WILL CPOC.
[2018-10-16 09:06] VITALS: BP 146/67
--- NOTE | 2018-10-16 09:57 | NUR ---
PT TOOK MEDICATIONS WITHOUT DIFFICULTY. A/O X 4. UP WITH ASSISTANCE. FAMILY AT BEDSIDE. REFUSED MIRALAX DUE TO DIARRHEA. NO EDEMA NOTED. DRSG TO ABD C/D/I. PEDAL PULSES PALPABLE. LUNGS CLEAR. NO FURTHER CONCERNS AT THIS TIME. BED LOWERED AND LOCKED. CL IN REACH. WILL CPOC.
--- NOTE | 2018-10-16 10:07 | NUR ---
PT WALKED WITH PT AROUND NURSES STATION, 1 LAP WITH WALKER WITHOUT DIFFICULTY.
--- NOTE | 2018-10-16 12:18 | NUR ---
PT C/O BURNING TO PD CATH SITE. SITE CLEAN AND DRY. CALLED [facility], SPOKE WITH DARLYN. SAID SHE WOULD LEAVE A MESSAGE FOR NAOMI ASKING IF HE COULD COME SEE PT AFTER HIS PROCEDURES TODAY. NO FURTHER CONCERNS AT THIS TIME.
[2018-10-16 12:49] VITALS: BP 139/69
[2018-10-16 16:59] VITALS: BP 154/58
--- NOTE | 2018-10-16 17:06 | NUR ---
ASSESMENT REVIEWED AND AGREE.
--- NOTE | 2018-10-16 19:45 | NUR ---
RESUMING CARE, PT IN BED A&O BREATH SOUNDS EVEN , IV IN RT FA ITS SL , PT ON RA , PD CATH TO ABDOMEN HERNIA SCAR TO , LEFT LOWER ABDOMEN, PT IS WEARING ABD. BINDER , LEFT AVF , RESERVED LEFT ARM , FAMILY @BEDSIDE NO C/O PAIN OR DISTRESS AT THIS TIME CL IN REACH WILL CONT TO MONITOR
[2018-10-16 20:00] VITALS: BP 132/58
--- NOTE | 2018-10-17 03:05 | NUR ---
RESTING QUITELY IN BED RESP UNLABORED NO APPARENT DISTRESS CALL LIGHT IN REACH
[2018-10-17 04:00] VITALS: BP 128/60
[2018-10-17 06:30] LABS: BASOPHILS 0.5 % (0-2); EOSINOPHILS 5.8 % (0-7); HEMATOCRIT 30.3 % (42.0-54.0); HEMOGLOBIN 10.1 g/dL (13.5-17.5); IMMATURE GRANULOCYTES 0.8 % (0-5); LYMPHOCYTES 17.5 % (15-50); MCH 28.7 pg (26.0-34.0); MCHC 33.3 g/dL (31.0-37.0); MCV 86.1 fL (80.0-100.0); MEAN PLATELET VOLUME 8.9 fL (7.4-10.4); MONOCYTES 13.8 % (2-11); NEUTROPHILS 61.6 % (40-80); PLATELET COUNT 190 10x3/uL (130-400); RBC 3.52 10x6/uL (4.20-6.10); RDW 13.5 % (11.5-14.5); WBC 8.9 10x3/uL (4.8-10.8)
[2018-10-17 06:35] LABS: ANION GAP 18.1 mmol/L (8-16); CALCIUM 9.1 mg/dL (8.5-10.1); CARBON DIOXIDE 25.2 mmol/L (21.0-32.0); CREATININE - SERUM 8.8 mg/dL (0.6-1.3); POTASSIUM - SERUM 3.3 mmol/L (3.5-5.1)
--- NOTE | 2018-10-17 07:55 | NUR ---
PT LAYING IN BED RESTING. AT BEDSIDE. COMPLAINS THAT THEY ONLY SAW THERE NURSE ONCE LAST NIGHT. DENIES PAIN THIS AM. PT ALSO STATES THAT HE DIDNT SLEEP AT ALL LAST NIGHT. DRSG TO ABD OVER PD CATH C/D/I. L AV FISTULA, BRUIT AND THRILL PRESENT. NO EDEMA NOTED. IV TO R FOREARM SL. PT A/O THIS AM. UP WITH ASSISTANCE OF WALKER. DENIES FURTHER CONCERNS AT THIS TIME. BED LOWERED AND LOCKED. CL IN REACH. WILL CPOC
--- NOTE | 2018-10-17 07:59 | NUR ---
BREAKFAST SERVED. PHOSLO GIVEN. SEE EMAR. PT DENIES FURTHER CONCERNS AT THIS TIME. CPOC.
--- NOTE | 2018-10-17 08:33 | NUR ---
PT TO HD VIA WHEELCHAIR
[2018-10-17 08:57] VITALS: BP 149/68
--- NOTE | 2018-10-17 10:36 | NUR ---
REVIEWED AND AGREE WITH ABOVE ASSESMENT.
[2018-10-17] MEDS ORDERED: PHOSLO667 MG PO (10:46)
[2018-10-17] MEDS ORDERED: MEGACE40 MG PO (10:46)
--- NOTE | 2018-10-17 10:52 | NUR ---
PT BACK TO ROOM FROM HD VIA WHEELCHAIR.
--- NOTE | 2018-10-17 12:54 | MORECARE ---
CASE MANAGEMENT DISCHARGE SUMMARY PATIENT: DEBORAH RUCKER GENE UNIT: [id number] ADM DATE: 10/10/18 AGE: 68 : 48 SEX: M ROOM/BED: D.7247 AUTHOR: SHIVA,DOC PHYSICIAN: REFERRING PHYSICIAN: JITENDRA NELSON MD DATE OF SERVICE: 10/17/18 Discharge Plan Patient Name: DEBORAH RUCKER Facility: [facility]:[place] : 1950 Planned Disposition: Home with Home Health Anticipated Discharge Date: 10/17/18 Discharge Date: Expected LOS: 7 Initial Reviewer: [email or web address] Initial Review Date: 10/10/2018 Generated: 10/17/18 1:54 pm Comments DCP- Discharge Planning Updated by [email or web address]: Ani Damon on 10/10/18 7:[address] Patient Name: DEBORAH RUCKER Admission Status: Urgent Accout number: [id number] Admission Date: 10-10-2018 : 1950 Admission Diagnosis: Attending: JITENDRA NELSON Current LOS: 1 Anticipated DC Date: Planned Disposition: Home Primary Insurance: MEDICARE A & B Discharge Planning Comments: CM met with patient at bedside after obtaining verbal consent. Patient states he plans on returning home after discharge with his . Patient was recently admitted for PD cath placement. Patient states he will have family transport him home via private vehicle. Patient may need dialysis setup for outpatient if required. Patient denies any discharge needs at this time. CM will continue to follow and assist as needed for discharge planning / needs. Stonemason Supervisor: Ani Damon DCPIA - Discharge Planning Initial Assessment Updated by [email or web address]: Ani Damon on 10/10/18 8:07 pm * Is the patient Alert and Oriented? Yes * How many steps to enter\exit or inside your home? * PCP CAN'T REMEMBER? * [facility]acy [facility] * Preadmission Environment Home with Family * ADLs Independent * Equipment Wheelchair * Other Equipment CANE * List name and contact numbers for known caregivers / representatives who currently or will assist patient after discharge: TORRES RUCKER - SPOUSE- [phone] * Verbal permission to speak to the caregivers and representatives has been obtained from the patient. Yes * Community resources currently utilized None * Additional services required to return to the preadmission environment? No * Can the patient safely return to the preadmission environment? Yes * Has this patient been hospitalized within the prior 30 days at any hospital? Yes Last DP export: 10/10/18 7:20 p Patient Name: DEBORAH RUCKER Page [phone] at 1254 All edits/amendments must be made on the electronic document DICTATION DATE: 10/17/18 125 CLAIM REPRESENTATIVE: LIZ 10/17/18 1254 RPT#: [id number] DC DATE: STATUS: ADM IN [facility] [address] [place] [address] END OF REPORT
--- NOTE | 2018-10-17 13:02 | MORECARE ---
CASE MANAGEMENT DISCHARGE SUMMARY PATIENT: DEBORAH RUCKER GENE UNIT: [id number] ADM DATE: 10/10/18 AGE: 68 : 48 SEX: M ROOM/BED: D.2539 AUTHOR: SHIVA,DOC PHYSICIAN: REFERRING PHYSICIAN: JITENDRA NELSON MD DATE OF SERVICE: 10/17/18 Discharge Plan Patient Name: DEBORAH RUCKER Facility: [facility]:[place] : 1950 Planned Disposition: Home with Home Health Anticipated Discharge Date: 10/17/18 Discharge Date: Expected LOS: 7 Initial Reviewer: [email or web address] Initial Review Date: 10/10/2018 Generated: 10/17/18 2:02 pm Comments DCP- Discharge Planning Updated by [email or web address]: Ani Damon on 10/10/18 7:[address] Patient Name: DEBORAH RUCKER Admission Status: Urgent Accout number: [id number] Admission Date: 10-10-2018 : 1950 Admission Diagnosis: Attending: JITENDRA NELSON Current LOS: 1 Anticipated DC Date: Planned Disposition: Home Primary Insurance: MEDICARE A & B Discharge Planning Comments: CM met with patient at bedside after obtaining verbal consent. Patient states he plans on returning home after discharge with his . Patient was recently admitted for PD cath placement. Patient states he will have family transport him home via private vehicle. Patient may need dialysis setup for outpatient if required. Patient denies any discharge needs at this time. CM will continue to follow and assist as needed for discharge planning / needs. Senior Designer: Ani Damon DCPIA - Discharge Planning Initial Assessment Updated by [email or web address]: Ani Damon on 10/10/18 8:07 pm * Is the patient Alert and Oriented? Yes * How many steps to enter\exit or inside your home? * PCP CAN'T REMEMBER? * [facility]acy [facility] * Preadmission Environment Home with Family * ADLs Independent * Equipment Wheelchair * Other Equipment CANE * List name and contact numbers for known caregivers / representatives who currently or will assist patient after discharge: TORRES RUCKER - SPOUSE- [phone] * Verbal permission to speak to the caregivers and representatives has been obtained from the patient. Yes * Community resources currently utilized None * Additional services required to return to the preadmission environment? No * Can the patient safely return to the preadmission environment? Yes * Has this patient been hospitalized within the prior 30 days at any hospital? Yes External Providers External Provider: [facility] Next Contact Date: 10/17/2018 Service Request Date: Service Type: Resolution: Reviewer: Comments: Last DP export: 10/10/18 7:20 p Patient Name: DEBORAH RUCKER Page [phone] at 1302 All edits/amendments must be made on the electronic document DICTATION DATE: 10/17/18 1302 MONUMENT LETTERER: LIZ 10/17/18 1302 RPT#: [id number] DC DATE: STATUS: ADM IN [facility] [address] [place] [address] END OF REPORT
--- NOTE | 2018-10-17 13:16 | MORECARE ---
CASE MANAGEMENT DISCHARGE SUMMARY PATIENT: DEBORAH RUCKER GENE UNIT: [id number] ADM DATE: 10/10/18 AGE: 68 : 48 SEX: M ROOM/BED: D.6669 AUTHOR: SHIVA,DOC PHYSICIAN: REFERRING PHYSICIAN: JITENDRA NELSON MD DATE OF SERVICE: 10/17/18 Discharge Plan Patient Name: DEBORAH RUCKER Facility: [facility]:[place] : 1950 Planned Disposition: Home with Home Health Anticipated Discharge Date: 10/17/18 Discharge Date: Expected LOS: 7 Initial Reviewer: [email or web address] Initial Review Date: 10/10/2018 Generated: 10/17/18 2:15 pm Comments DCP- Discharge Planning Updated by [email or web address]: Ani Damon on 10/10/18 7:[address] Patient Name: DEBORAH RUCKER Admission Status: Urgent Accout number: [id number] Admission Date: 10-10-2018 : 1950 Admission Diagnosis: Attending: JITENDRA NELSON Current LOS: 1 Anticipated DC Date: Planned Disposition: Home Primary Insurance: MEDICARE A & B Discharge Planning Comments: CM met with patient at bedside after obtaining verbal consent. Patient states he plans on returning home after discharge with his . Patient was recently admitted for PD cath placement. Patient states he will have family transport him home via private vehicle. Patient may need dialysis setup for outpatient if required. Patient denies any discharge needs at this time. CM will continue to follow and assist as needed for discharge planning / needs. V/Stol Landing Signal Officer: Ani Damon DCPIA - Discharge Planning Initial Assessment Updated by [email or web address]: Ani Damon on 10/10/18 8:07 pm * Is the patient Alert and Oriented? Yes * How many steps to enter\exit or inside your home? * PCP CAN'T REMEMBER? * Pharmacy [facility] * Preadmission Environment Home with Family * ADLs Independent * Equipment Wheelchair * Other Equipment CANE * List name and contact numbers for known caregivers / representatives who currently or will assist patient after discharge: TORRES RUCKER - SPOUSE- [phone] * Verbal permission to speak to the caregivers and representatives has been obtained from the patient. Yes * Community resources currently utilized None * Additional services required to return to the preadmission environment? No * Can the patient safely return to the preadmission environment? Yes * Has this patient been hospitalized within the prior 30 days at any hospital? Yes External Providers External Provider: [facility] Next Contact Date: 10/17/2018 Service Request Date: Service Type: Resolution: Reviewer: Comments: Last DP export: 10/17/18 12:02 p Patient Name: DEBORAH RUCKER Page [phone] at 1316 All edits/amendments must be made on the electronic document DICTATION DATE: 10/17/18 1315 COMPUTER TECH: LIZ 10/17/18 1315 RPT#: [id number] DC DATE: STATUS: ADM IN [facility] [address] [place] [address] END OF REPORT
--- NOTE | 2018-10-17 13:22 | NUR ---
DRSG TO ABD OVER PD CATH CHANGED. AT BEDSIDE WATCHED SO SHE COULD CHANGE AT HOME. NO FUTHER CONCERNS AT THIS TIME. BED LOWERED AND LOCKED. CL IN REACH. WILL CPOC.
--- NOTE | 2018-10-17 13:22 | MORECARE ---
CASE MANAGEMENT DISCHARGE SUMMARY PATIENT: DEBORAH RUCKER GENE UNIT: [id number] ADM DATE: 10/10/18 AGE: 68 : 48 SEX: M ROOM/BED: D.6834 AUTHOR: SHIVA,DOC PHYSICIAN: REFERRING PHYSICIAN: JITENDRA NELSON MD DATE OF SERVICE: 10/17/18 Discharge Plan Patient Name: DEBORAH RUCKER Facility[facility]:[place] : 1950 Planned Disposition: Home with Home Health Anticipated Discharge Date: 10/17/18 Discharge Date: Expected LOS: 7 Initial Reviewer: [id number] Initial Review Date: 10/10/2018 Generated: 10/17/18 2:22 pm Comments DCP- Discharge Planning Updated by [email or web address]: Jacob Salgado on 10/17/18 12:[address] Patient Name: DEBORAH RUCKER Encounter No: [id number] : 1950 Primary Insurance: MEDICARE A & B Anticipated DC Date: 10-17-2018 Planned Disposition: Home with Home Health External Planned Provider: [facility] DCP follow-up note: CM RECEIVED ORDER FOR DISCHARGE AND HOME HEALTH. CM MET WITH PT AND SPOUSE IN ROOM TO DISCUSS DISCHARGE NEEDS AND PLANNING. DEBORAH RUCKER provided verbal consent to discuss current and ongoing needs with/in the presence of: SPOUSE, TORRES. CM DISCUSSED AVAILABILITY OF HOME HEALTH, REHAB SERVICES AND MEDICAL EQUIPMENT. PT IN AGREEMENT WITH [facility], REQUESTS ROLLING WALKER WITH SEAT AND BRAKES FOR HOME USE. PT'S SPOUSE REPORTS DR. MURILLO TOLD THEM HE WOULD ORDER IT. PT'S SPOUSE TO TRANSPORT HOME AT DISCHARGE TODAY. IMPORTANT MESSAGE FROM MEDICARE PROVIDED AND EXPLAINED. CHOICE LISTING FOR HOME HEALTH AND MEDICAL EQUIPMENT PROVIDER GIVEN; PT SIGNED CHOICES FOR [facility] AND [facility]. PT'S SPOUSE REPORTS THEY WILL SOFTWARE QUALITY ASSURANCE ENGINEER THE WALKER IN [place] ON THE WAY HOME TODAY. PT DENIES FURHTER NEEDS. CM CALLED [facility] OFFICE AT [phone], PROVIDED REFERRAL TO [facility] WHO PLACED ON SCHEDULE FOR MONDAY. CM FAXED DISCHARGE INFORMATION TO [facility] AT [phone]. CM CALLED [facility], , SPOKE TO MARYSE WHO TOOK REFERRAL AND HAS WALKER IN STOCK FOR SOFTWARE QUALITY ASSURANCE ENGINEER TODAY. CM FAXED REFERRAL INFORMATION TO [facility] AT [phone]. WHITE LEAD FILTERER NURSE NOTIFIED. Jacob Salgado, CASE MANAGEMENT DCP- Discharge Planning Updated by [id number]: Ani Damon on 10/10/18 7:[address] Patient Name: DEBORAH RUCKER Admission Status: Urgent Accout number: [id number] Admission Date: 10-10-2018 : 1950 Admission Diagnosis: Attending: JITENDRA NELSON Current LOS: 1 Anticipated DC Date: Planned Disposition: Home Primary Insurance: MEDICARE A & B Discharge Planning Comments: CM met with patient at bedside after obtaining verbal consent. Patient states he plans on returning home after discharge with his . Patient was recently admitted for PD cath placement. Patient states he will have family transport him home via private vehicle. Patient may need dialysis setup for outpatient if required. Patient denies any discharge needs at this time. CM will continue to follow and assist as needed for discharge planning / needs. Vacuum Pan Operator: Ani Damon DCPIA - Discharge Planning Initial Assessment Updated by [id number]: Ani Damon on 10/10/18 8:07 pm * Is the patient Alert and Oriented? Yes * How many steps to enter\exit or inside your home? * PCP CAN'T REMEMBER? * [facility]acy [facility] * Preadmission Environment Home with Family * ADLs Independent * Equipment Wheelchair * Other Equipment CANE * List name and contact numbers for known caregivers / representatives who currently or will assist patient after discharge: TORRES RUCKER - SPOUSE- [phone] * Verbal permission to speak to the caregivers and representatives has been obtained from the patient. Yes * Community resources currently utilized None * Additional services required to return to the preadmission environment? No * Can the patient safely return to the preadmission environment? Yes * Has this patient been hospitalized within the prior 30 days at any hospital? Yes Coverage Notice Reviewer: [id number] - Jacob Salgado Notice Issued Date-Time: 10/17/2018 12:05 Notice Type: Patient Choice Letter Notice Delivered To: Patient Relationship to Patient: Financial Institution Treasurer Name: Delivery Method: HAND - Hand Delivered Mariela Days: Prior Verbal Notification: Recipient Understood Notice: Yes Recipient Signature: Yes Med Rec Note Co-signed by Attending: Coverage Notice Comment: [facility] Reviewer: [id number] Walt Salgado Notice Issued Date-Time: 10/17/2018 12:05 Notice Type: IM Discharge Notice Notice Delivered To: Patient Relationship to Patient: Financial Institution Treasurer Name: Delivery Method: HAND - Hand Delivered Mariela Days: Prior Verbal Notification: Recipient Understood Notice: Yes Recipient Signature: Yes Med Rec Note Co-signed by Attending: Coverage Notice Comment: Last DP export: 10/17/18 12:15 p Patient Name: DEBORAH RUCKER Page 17309 at 1322 All edits/amendments must be made on the electronic document DICTATION DATE: 10/17/18 132 CELL MANAGER: LIZ 10/17/18 1322 RPT#: [id number] DC DATE: STATUS: ADM IN [facility] [address] [place] [address] END OF REPORT
[2018-10-17] MEDS ORDERED: LEVOFLOXACIN500 MG PO (13:53)
--- NOTE | 2018-10-17 14:33 | NUR ---
DC GIVEN TO PT AND . SIGNED DC PAPERS. BOTH PT AND VERBALIZED UNDERSTANDING OF DC. IV TO R FOREARM REMOVED, TIP INTACT. PT READY TO LEAVE. NO FURTHER CONCERNS AT THIS TIME.
--- NOTE | 2018-10-17 14:37 | NUR ---
PT DC VIA WHEELCHAIR PER PERSONAL CAR WITH .
--- NOTE | 2018-10-17 15:20 | MORECARE ---
CASE MANAGEMENT DISCHARGE SUMMARY PATIENT: DEBORAH RUCKER GENE UNIT: [id number] ADM DATE: 10/10/18 AGE: 68 : 48 SEX: M ROOM/BED: D.1727 AUTHOR: SHIVA,DOC PHYSICIAN: REFERRING PHYSICIAN: JITENDRA NELSON MD DATE OF SERVICE: 10/17/18 Discharge Plan Patient Name: DEBORAH RUCKER Facility: [facility]:[place] : 1950 Planned Disposition: Home with Home Health Anticipated Discharge Date: 10/17/18 Discharge Date: 10/17/2018 Expected LOS: 7 Initial Reviewer: [email or web address] Initial Review Date: 10/10/2018 Generated: 10/17/18 4:20 pm Comments DCP- Discharge Planning Updated by [email or web address]: Jacob Salgado on 10/17/18 12:[address] Patient Name: DEBORAH RUCKER Encounter No: [id number] : 1950 Primary Insurance: MEDICARE A & B Anticipated DC Date: 10-17-2018 Planned Disposition: Home with Home Health External Planned Provider: [facility] OFFICE DCP follow-up note: CM RECEIVED ORDER FOR DISCHARGE AND HOME HEALTH. CM MET WITH PT AND SPOUSE IN ROOM TO DISCUSS DISCHARGE NEEDS AND PLANNING. DEBORAH RUCKER provided verbal consent to discuss current and ongoing needs with/in the presence of: SPOUSE, TORRES. CM DISCUSSED AVAILABILITY OF HOME HEALTH, REHAB SERVICES AND MEDICAL EQUIPMENT. PT IN AGREEMENT WITH [facility], REQUESTS ROLLING WALKER WITH SEAT AND BRAKES FOR HOME USE. PT'S SPOUSE REPORTS DR. MURILLO TOLD THEM HE WOULD ORDER IT. PT'S SPOUSE TO TRANSPORT HOME AT DISCHARGE TODAY. IMPORTANT MESSAGE FROM MEDICARE PROVIDED AND EXPLAINED. CHOICE LISTING FOR HOME HEALTH AND MEDICAL EQUIPMENT PROVIDER GIVEN; PT SIGNED CHOICES FOR [facility] AND [facility]. PT'S SPOUSE REPORTS THEY WILL PLUMBING MECHANIC THE WALKER IN [place] ON THE WAY HOME TODAY. PT DENIES FURHTER NEEDS. CM CALLED [facility] OFF[facility] AT [phone], PROVIDED REFERRAL TO [facility] WHO PLACED ON SCHEDULE FOR MONDAY. CM FAXED DISCHARGE INFORMATION TO [facility] AT [phone]. CM CALLED [facility], , SPOKE TO MARYSE WHO TOOK REFERRAL AND HAS WALKER IN STOCK FOR PLUMBING MECHANIC TODAY. CM FAXED REFERRAL INFORMATION TO [facility] AT [phone]. FORK REPAIRER NURSE NOTIFIED. Jacob Salgado, CASE MANAGEMENT DCP- Discharge Planning Updated by [id number]: Ani Damon on 10/10/18 7:[address] Patient Name: DEBORAH RUCKER Admission Status: Urgent Accout number: [id number] Admission Date: 10-10-2018 : 1950 Admission Diagnosis: Attending: JITENDRA NELSON Current LOS: 1 Anticipated DC Date: Planned Disposition: Home Primary Insurance: MEDICARE A & B Discharge Planning Comments: CM met with patient at bedside after obtaining verbal consent. Patient states he plans on returning home after discharge with his . Patient was recently admitted for PD cath placement. Patient states he will have family transport him home via private vehicle. Patient may need dialysis setup for outpatient if required. Patient denies any discharge needs at this time. CM will continue to follow and assist as needed for discharge planning / needs. Computer Publisher: Ani Damon DCPIA - Discharge Planning Initial Assessment Updated by [email or web address]: Ani Damon on 10/10/18 8:07 pm * Is the patient Alert and Oriented? Yes * How many steps to enter\exit or inside your home? * PCP CAN'T REMEMBER? * Pharmacy [facility] * Preadmission Environment Home with Family * ADLs Independent * Equipment Wheelchair * Other Equipment CANE * List name and contact numbers for known caregivers / representatives who currently or will assist patient after discharge: TORRES RUCKER - SPOUSE- [phone] * Verbal permission to speak to the caregivers and representatives has been obtained from the patient. Yes * Community resources currently utilized None * Additional services required to return to the preadmission environment? No * Can the patient safely return to the preadmission environment? Yes * Has this patient been hospitalized within the prior 30 days at any hospital? Yes External Providers External Provider: OTHER-OTHER Next Contact Date: 10/17/2018 Service Request Date: Service Type: Resolution: Reviewer: Comments: Coverage Notice Reviewer: [id number] - Jacob Salgado Notice Issued Date-Time: 10/17/2018 12:05 Notice Type: Patient Choice Letter Notice Delivered To: Patient Relationship to Patient: Printing Machine Operator Name: Delivery Method: HAND - Hand Delivered Mariela Days: Prior Verbal Notification: Recipient Understood Notice: Yes Recipient Signature: Yes Med Rec Note Co-signed by Attending: Coverage Notice Comment: [facility] Reviewer: [id number] Walt Salgado Notice Issued Date-Time: 10/17/2018 12:05 Notice Type: IM Discharge Notice Notice Delivered To: Patient Relationship to Patient: Printing Machine Operator Name: Delivery Method: HAND - Hand Delivered Mariela Days: Prior Verbal Notification: Recipient Understood Notice: Yes Recipient Signature: Yes Med Rec Note Co-signed by Attending: Coverage Notice Comment: Last DP export: 10/17/18 12:22 p Patient Name: DEBORAH RUCKER Page [id number] at 1520 All edits/amendments must be made on the electronic document DICTATION DATE: 10/17/18 1520 RETAIL MARKETING COORDINATOR: LIZ 10/17/18 1520 RPT#: [id number] DC DATE:10/17/18 STATUS: DIS IN [facility] [address] [place] [address] END OF REPORT
--- NOTE | 2018-10-17 15:27 | MORECARE ---
CASE MANAGEMENT DISCHARGE SUMMARY PATIENT: DEBORAH RUCKER GENE UNIT: [id number] ADM DATE: 10/10/18 AGE: 68 : 48 SEX: M ROOM/BED: D.3344 AUTHOR: SHIVA,DOC PHYSICIAN: REFERRING PHYSICIAN: JITENDRA NELSON MD DATE OF SERVICE: 10/17/18 Discharge Plan Patient Name: DEBORAH RUCKER Facility: [facility]:[place] : 1950 Planned Disposition: Home with Home Health Anticipated Discharge Date: 10/17/18 Discharge Date: 10/17/2018 Expected LOS: 7 Initial Reviewer: [email or web address] Initial Review Date: 10/10/2018 Generated: 10/17/18 4:27 pm Comments DCP- Discharge Planning Updated by [email or web address]: Jacob Salgado on 10/17/18 12:[address] Patient Name: DEBORAH RUCKER Encounter No: [id number] : 1950 Primary Insurance: MEDICARE A & B Anticipated DC Date: 10-17-2018 Planned Disposition: Home with Home Health External Planned Provider: [facility] OFFICE DCP follow-up note: CM RECEIVED ORDER FOR DISCHARGE AND HOME HEALTH. CM MET WITH PT AND SPOUSE IN ROOM TO DISCUSS DISCHARGE NEEDS AND PLANNING. DEBORAH RUCKER provided verbal consent to discuss current and ongoing needs with/in the presence of: SPOUSE, TORRES. CM DISCUSSED AVAILABILITY OF HOME HEALTH, REHAB SERVICES AND MEDICAL EQUIPMENT. PT IN AGREEMENT WITH [facility], REQUESTS ROLLING WALKER WITH SEAT AND BRAKES FOR HOME USE. PT'S SPOUSE REPORTS DR. MURILLO TOLD THEM HE WOULD ORDER IT. PT'S SPOUSE TO TRANSPORT HOME AT DISCHARGE TODAY. IMPORTANT MESSAGE FROM MEDICARE PROVIDED AND EXPLAINED. CHOICE LISTING FOR HOME HEALTH AND MEDICAL EQUIPMENT PROVIDER GIVEN; PT SIGNED CHOICES FOR [facility] AND [facility]. PT'S SPOUSE REPORTS THEY WILL INVESTMENTS MANAGER THE WALKER IN [place] ON THE WAY HOME TODAY. PT DENIES FURHTER NEEDS. CM CALLED [facility] OFFICE AT [phone], PROVIDED REFERRAL TO [facility] WHO PLACED ON SCHEDULE FOR MONDAY. CM FAXED DISCHARGE INFORMATION TO [facility] AT [phone]. CM CALLED [facility], , SPOKE TO MARYSE WHO TOOK REFERRAL AND HAS WALKER IN STOCK FOR INVESTMENTS MANAGER TODAY. CM FAXED REFERRAL INFORMATION TO [facility] AT [phone]. WATER MAIN INSTALLER HELPER NURSE NOTIFIED. Jacob Salgado, CASE MANAGEMENT DCP- Discharge Planning Updated by [id number]: Ani Damon on 10/10/18 7:[address] Patient Name: DEBORAH RUCKER Admission Status: Urgent Accout number: [id number] Admission Date: 10-10-2018 : 1950 Admission Diagnosis: Attending: JITENDRA NELSON Current LOS: 1 Anticipated DC Date: Planned Disposition: Home Primary Insurance: MEDICARE A & B Discharge Planning Comments: CM met with patient at bedside after obtaining verbal consent. Patient states he plans on returning home after discharge with his . Patient was recently admitted for PD cath placement. Patient states he will have family transport him home via private vehicle. Patient may need dialysis setup for outpatient if required. Patient denies any discharge needs at this time. CM will continue to follow and assist as needed for discharge planning / needs. Account Analyst: Ani Damon DCPIA - Discharge Planning Initial Assessment Updated by [email or web address]: Ani Damon on 10/10/18 8:07 pm * Is the patient Alert and Oriented? Yes * How many steps to enter\exit or inside your home? * PCP CAN'T REMEMBER? * Pharmacy [facility] * Preadmission Environment Home with Family * ADLs Independent * Equipment Wheelchair * Other Equipment CANE * List name and contact numbers for known caregivers / representatives who currently or will assist patient after discharge: TORRES RUCKER - SPOUSE- [phone] * Verbal permission to speak to the caregivers and representatives has been obtained from the patient. Yes * Community resources currently utilized None * Additional services required to return to the preadmission environment? No * Can the patient safely return to the preadmission environment? Yes * Has this patient been hospitalized within the prior 30 days at any hospital? Yes External Providers External Provider: OTHER-OTHER Next Contact Date: 10/17/2018 Service Request Date: Service Type: Resolution: Reviewer: Comments: Coverage Notice Reviewer: [id number] - Jacob Salgado Notice Issued Date-Time: 10/17/2018 12:05 Notice Type: Patient Choice Letter Notice Delivered To: Patient Relationship to Patient: Travel Med Surg Rn Name: Delivery Method: HAND - Hand Delivered Mariela Days: Prior Verbal Notification: Recipient Understood Notice: Yes Recipient Signature: Yes Med Rec Note Co-signed by Attending: Coverage Notice Comment: [facility] Reviewer: [id number] Walt Salgado Notice Issued Date-Time: 10/17/2018 12:05 Notice Type: IM Discharge Notice Notice Delivered To: Patient Relationship to Patient: Travel Med Surg Rn Name: Delivery Method: HAND - Hand Delivered Mariela Days: Prior Verbal Notification: Recipient Understood Notice: Yes Recipient Signature: Yes Med Rec Note Co-signed by Attending: Coverage Notice Comment: Last DP export: 10/17/18 2:20 p Patient Name: DEBORAH RUCKER Page 07138 at 1527 All edits/amendments must be made on the electronic document DICTATION DATE: 10/17/187 STAVE BOLT EQUALIZER: LIZ 10/17/18 1527 RPT#: [id number] DC DATE:10/17/18 STATUS: DIS IN [facility] [address] [place] [address] END OF REPORT
--- NOTE | 2018-10-17 15:38 | MORECARE ---
CASE MANAGEMENT DISCHARGE SUMMARY PATIENT: DEBORAH RUCKER GENE UNIT: [id number] ADM DATE: 10/10/18 AGE: 68 : 48 SEX: M ROOM/BED: D.1387 AUTHOR: SHIVA,DOC PHYSICIAN: REFERRING PHYSICIAN: JITENDRA NELSON MD DATE OF SERVICE: 10/17/18 Discharge Plan Patient Name: DEBORAH RUCKER Facility: [facility]:[place] : 1950 Planned Disposition: Home with Home Health Anticipated Discharge Date: 10/17/18 Discharge Date: 10/17/2018 Expected LOS: 7 Initial Reviewer: [id number] Initial Review Date: 10/10/2018 Generated: 10/17/18 4:37 pm Comments DCP- Discharge Planning Updated by [email or web address]: Jacob Rivas on 10/17/18 2:[address] Patient Name: DEBORAH RUCKER Encounter No: [id number] : 1950 Primary Insurance: MEDICARE A & B Anticipated DC Date: 10-17-2018 Planned Disposition: Home with Home Health External Planned Provider: [facility] OFFICE DCP follow-up note: CM RECEIVED ORDER FOR DISCHARGE AND HOME HEALTH. CM MET WITH PT AND SPOUSE IN ROOM TO DISCUSS DISCHARGE NEEDS AND PLANNING. DEBORAH RUCKER provided verbal consent to discuss current and ongoing needs with/in the presence of: SPOUSE, TORRES. CM DISCUSSED AVAILABILITY OF HOME HEALTH, REHAB SERVICES AND MEDICAL EQUIPMENT. PT IN AGREEMENT WITH [facility], REQUESTS ROLLING WALKER WITH SEAT AND BRAKES FOR HOME USE. PT'S SPOUSE REPORTS DR. MURILLO TOLD THEM HE WOULD ORDER IT. PT'S SPOUSE TO TRANSPORT HOME AT DISCHARGE TODAY. IMPORTANT MESSAGE FROM MEDICARE PROVIDED AND EXPLAINED. CHOICE LISTING FOR HOME HEALTH AND MEDICAL EQUIPMENT PROVIDER GIVEN; PT SIGNED CHOICES FOR [facility] AND [facility]. PT'S SPOUSE REPORTS THEY WILL FORM LAYER THE WALKER IN [place] ON THE WAY HOME TODAY. PT DENIES FURHTER NEEDS. CM CALLED [facility] OFFICE AT [phone], PROVIDED REFERRAL TO [facility] WHO PLACED ON SCHEDULE FOR MONDAY. CM FAXED DISCHARGE INFORMATION TO [facility] AT [phone]. CM CALLED [facility], , SPOKE TO MARYSE WHO TOOK REFERRAL AND HAS WALKER IN STOCK FOR FORM LAYER TODAY. CM FAXED REFERRAL INFORMATION TO [facility] AT [phone]. MOLDER AUTOMOBILE CARPETS NURSE NOTIFIED. Jacob Rivas, CASE MANAGEMENT Appended by Jacob Rivas on 10/17/2018 15:28 TRANSCRIBING MACHINE MECHANIC: CM RECEIVED DETAILED WRITTEN ORDER FOR ROLLING WALKER, CM CALLED AND SPOKE TO FARIHA POPE WHO DIRECTED CM TO FAX TO OFFICE FOR SIGNATURE. CM FAXED TO DR. IZQUIERDO' OFFICE FOR SIGNATURE WITH REQUEST TO RETURN SIGNED FORM TO CM WHO WILL DIRECT TO [facility]. JACOB RIVAS, CASE MANAGEMENT DCP- Discharge Planning Updated by [id number]: Ani Damon on 10/10/18 7:[address] Patient Name: DEBORAH RUCKER Admission Status: Urgent Accout number: [id number] Admission Date: 10-10-2018 : 1950 Admission Diagnosis: Attending: JITENDRA NELSON Current LOS: 1 Anticipated DC Date: Planned Disposition: Home Primary Insurance: MEDICARE A & B Discharge Planning Comments: CM met with patient at bedside after obtaining verbal consent. Patient states he plans on returning home after discharge with his . Patient was recently admitted for PD cath placement. Patient states he will have family transport him home via private vehicle. Patient may need dialysis setup for outpatient if required. Patient denies any discharge needs at this time. CM will continue to follow and assist as needed for discharge planning / needs. Medical Supervisor: Ani Damon DCPIA - Discharge Planning Initial Assessment Updated by [email or web address]: Ani Damon on 10/10/18 8:07 pm * Is the patient Alert and Oriented? Yes * How many steps to enter\exit or inside your home? * PCP CAN'T REMEMBER? * Pharmacy [facility] * Preadmission Environment Home with Family * ADLs Independent * Equipment Wheelchair * Other Equipment CANE * List name and contact numbers for known caregivers / representatives who currently or will assist patient after discharge: TORRES RUCKER - SPOUSE- [phone] * Verbal permission to speak to the caregivers and representatives has been obtained from the patient. Yes * Community resources currently utilized None * Additional services required to return to the preadmission environment? No * Can the patient safely return to the preadmission environment? Yes * Has this patient been hospitalized within the prior 30 days at any hospital? Yes Coverage Notice Reviewer: [id number] Walt Rivas Notice Issued Date-Time: 10/17/2018 12:05 Notice Type: Patient Choice Letter Notice Delivered To: Patient Relationship to Patient: Practicing Urologist Name: Delivery Method: HAND - Hand Delivered Mariela Days: Prior Verbal Notification: Recipient Understood Notice: Yes Recipient Signature: Yes Med Rec Note Co-signed by Attending: Coverage Notice Comment: [facility] Reviewer: [email or web address] Walt Rivas Notice Issued Date-Time: 10/17/2018 12:05 Notice Type: IM Discharge Notice Notice Delivered To: Patient Relationship to Patient: Practicing Urologist Name: Delivery Method: HAND - Hand Delivered Mariela Days: Prior Verbal Notification: Recipient Understood Notice: Yes Recipient Signature: Yes Med Rec Note Co-signed by Attending: Coverage Notice Comment: Last DP export: 10/17/18 2:27 p Patient Name: DEBORAH RUCKER Page [id number] at 1538 All edits/amendments must be made on the electronic document DICTATION DATE: 10/17/18 1537 SENIOR FUND ACCOUNTANT: LIZ 10/17/18 1537 RPT#: [id number] DC DATE:10/17/18 STATUS: DIS IN [facility] [address] [place] [address] END OF REPORT
--- NOTE | 2018-10-17 16:25 | MORECARE ---
CASE MANAGEMENT DISCHARGE SUMMARY PATIENT: DEBORAH RUCKER GENE UNIT: [id number] ADM DATE: 10/10/18 AGE: 68 : 46 SEX: M ROOM/BED: D.2168 AUTHOR: SHIVA,DOC PHYSICIAN: REFERRING PHYSICIAN: JITENDRA NELSON MD DATE OF SERVICE: 10/17/18 Discharge Plan Patient Name: DEBORAH RUCKER Facility: [facility]:[place] : 1950 Planned Disposition: Home with Home Health Anticipated Discharge Date: 10/17/18 Discharge Date: 10/17/2018 Expected LOS: 7 Initial Reviewer: [email or web address] Initial Review Date: 10/10/2018 Generated: 10/17/18 5:25 pm Comments DCP- Discharge Planning Updated by [email or web address]: Jacob Rivas on 10/17/18 2:[address] Patient Name: DEBORAH RUCKER Encounter No: [id number] : 1950 Primary Insurance: MEDICARE A & B Anticipated DC Date: 10-17-2018 Planned Disposition: Home with Home Health External Planned Provider: [facility]1983 OFFICE DCP follow-up note: CM RECEIVED ORDER FOR DISCHARGE AND HOME HEALTH. CM MET WITH PT AND SPOUSE IN ROOM TO DISCUSS DISCHARGE NEEDS AND PLANNING. DEBORAH RUCKER provided verbal consent to discuss current and ongoing needs with/in the presence of: SPOUSE, TORRES. CM DISCUSSED AVAILABILITY OF HOME HEALTH, REHAB SERVICES AND MEDICAL EQUIPMENT. PT IN AGREEMENT WITH [facility], REQUESTS ROLLING WALKER WITH SEAT AND BRAKES FOR HOME USE. PT'S SPOUSE REPORTS DR. MURILLO TOLD THEM HE WOULD ORDER IT. PT'S SPOUSE TO TRANSPORT HOME AT DISCHARGE TODAY. IMPORTANT MESSAGE FROM MEDICARE PROVIDED AND EXPLAINED. CHOICE LISTING FOR HOME HEALTH AND MEDICAL EQUIPMENT PROVIDER GIVEN; PT SIGNED CHOICES FOR [facility] AND [facility]. PT'S SPOUSE REPORTS THEY WILL STUDIO TECHNICIAN THE WALKER IN [place] ON THE WAY HOME TODAY. PT DENIES FURHTER NEEDS. CM CALLED [facility] OFFICE AT [phone], PROVIDED REFERRAL TO YONI WHO PLACED ON SCHEDULE FOR MONDAY. CM FAXED DISCHARGE INFORMATION TO [facility] AT [phone]. CM CALLED [facility], , SPOKE TO MARYSE WHO TOOK REFERRAL AND HAS WALKER IN STOCK FOR STUDIO TECHNICIAN TODAY. CM FAXED REFERRAL INFORMATION TO [facility] AT [phone]. PLANT SAFETY ENGINEER NURSE NOTIFIED. Jacob Rivas, CASE MANAGEMENT Appended by Jacob Rivas on 10/17/2018 15:28 BRANCH BILLING PAYROLL CLERK: CM RECEIVED DETAILED WRITTEN ORDER FOR ROLLING WALKER, CM CALLED AND SPOKE TO FARIHA POPE WHO DIRECTED CM TO FAX TO OFFICE FOR SIGNATURE. CM FAXED TO DR. IZQUIERDO' OFFICE FOR SIGNATURE WITH REQUEST TO RETURN SIGNED FORM TO CM WHO WILL DIRECT TO [facility]. JACOB RIVAS, CASE MANAGEMENT DCP- Discharge Planning Updated by [email or web address]: Ani Damon on 10/10/18 7:[address] Patient Name: DEBORAH RUCKER Admission Status: Urgent Accout number: [id number] Admission Date: 10-10-2018 : 1950 Admission Diagnosis: Attending: JITENDRA NELSON Current LOS: 1 Anticipated DC Date: Planned Disposition: Home Primary Insurance: MEDICARE A & B Discharge Planning Comments: CM met with patient at bedside after obtaining verbal consent. Patient states he plans on returning home after discharge with his . Patient was recently admitted for PD cath placement. Patient states he will have family transport him home via private vehicle. Patient may need dialysis setup for outpatient if required. Patient denies any discharge needs at this time. CM will continue to follow and assist as needed for discharge planning / needs. Liquefier: Ani Damon DCPIA - Discharge Planning Initial Assessment Updated by [email or web address]: Ani Damon on 10/10/18 8:07 pm * Is the patient Alert and Oriented? Yes * How many steps to enter\exit or inside your home? * PCP CAN'T REMEMBER? * [facility] * Preadmission Environment Home with Family * ADLs Independent * Equipment Wheelchair * Other Equipment CANE * List name and contact numbers for known caregivers / representatives who currently or will assist patient after discharge: TORRES RUCKER - SPOUSE- [phone] * Verbal permission to speak to the caregivers and representatives has been obtained from the patient. Yes * Community resources currently utilized None * Additional services required to return to the preadmission environment? No * Can the patient safely return to the preadmission environment? Yes * Has this patient been hospitalized within the prior 30 days at any hospital? Yes Coverage Notice Reviewer: [id number] Walt Rivas Notice Issued Date-Time: 10/17/2018 12:05 Notice Type: Patient Choice Letter Notice Delivered To: Patient Relationship to Patient: Highway Engineering Teacher Name: Delivery Method: HAND - Hand Delivered Mariela Days: Prior Verbal Notification: Recipient Understood Notice: Yes Recipient Signature: Yes Med Rec Note Co-signed by Attending: Coverage Notice Comment: [facility]; [facility] Reviewer: [id number] Walt Rivas Notice Issued Date-Time: 10/17/2018 12:05 Notice Type: IM Discharge Notice Notice Delivered To: Patient Relationship to Patient: Highway Engineering Teacher Name: Delivery Method: HAND - Hand Delivered Mariela Days: Prior Verbal Notification: Recipient Understood Notice: Yes Recipient Signature: Yes Med Rec Note Co-signed by Attending: Coverage Notice Comment: Last DP export: 10/17/18 2:38 p Patient Name: DEBORAH RUCKER Page [id number] at 1625 All edits/amendments must be made on the electronic document DICTATION DATE: 10/17/18 1625 LIGHT RAIL SIGNAL TECHNICIAN: LIZ 10/17/18 1625 RPT#: [id number] DC DATE:10/17/18 STATUS: DIS IN [facility] [address] [place] [address] END OF REPORT
--- NOTE | 2018-10-18 07:23 | DS ---
PATIENT:DEBORAH RUCKER :[birth year] MEDICAL RECORD: [id number] DISCHARGE SUMMARY ADMISSION DATE: 10/10/18 DISCHARGE DATE: 10/17/18 HISTORY OF PRESENT ILLNESS: Mr. Rucker is a 68-year-old white male with chronic kidney disease followed by me in the office. Creatinine has been gradually rising. Creatinine in the [facility] office 3 weeks ago of 9. The patient was asymptomatic at the time. He has been evaluated for home dialysis and is in the workup for a living unrelated transplant from his . I have notified by the of a change in his mental status with increasing lethargy and sleepiness and admitted for the above with uremia. HOSPITAL COURSE: The patient's BUN was over 130, creatinine was over 10 and he was subsequently begun on dialysis, and with end-stage renal disease we will continue dialysis as an outpatient. During this time, he had acute confusion. A CT of his head was negative. Eventually found to have a urinary tract infection with Klebsiella, treated with IV followed by oral Levaquin and will finish out his course of Levaquin. During this time, he was otherwise stable, did have an episode of probable gout in his knee, treated with colchicine and symptomatic therapy and at the time of discharge he was on a thrice weekly dialysis and will continue that as an outpatient. DISCHARGE DIAGNOSES: 1. Uremia, improved with dialysis. 2. Confusion, resolved. 3. Urinary tract infection. 4. Chronic anemia. 5. Hypertension. PLAN: The patient will be discharged today and he will be in [facility] tomorrow. He will begin home peritoneal training next week. He will see Dr. Campuzano in the office in 1-2 weeks where he will probably work on his partially exposed cuff. He will finish out his antibiotic therapy. He will have home health and home PT. I have reviewed all this with the at bedside. DISCHARGE MEDICATIONS: Levaquin 250 daily for a total of 7 days, allopurinol 100 mg daily. He will continue iron 325 one daily, PhosLo 2 t.i.d., Megace 40 mg daily, colchicine 0.6 b.i.d. He will be on multivitamin, baby aspirin 1 daily. He will resume Epogen as an outpatient and metoprolol 25 mg b.i.d. TRANSINT:[id number] Voice Confirmation ID: [id number] DOCUMENT ID: [id number] JOSE MURILLO MD at 0723 CC: [id number] DICTATION DATE: 10/17/18802 COIN BOX INSPECTOR: 10/18/18 0004 DIS IN 10/17/18 [facility] [address] [place] [id number]
== END 2018-10-17 14:37 | disposition home health service (06) | DRG 682 ==
LOC: D.M2 17:13 → D.ICU 17:40 → D.M2 17:40
PROVIDERS: Internal Medicine Nephrology; ADMIT Internal Medicine
PROC: 5A1D70Z Performance of Urinary Filtration, Intermittent, Less than 6 Hours Per Day (ICD-10-PCS; principal; 2018-10-11)
DX: I12.0 Hypertensive chronic kidney disease with stage 5 chronic kidney disease or end stage renal disease (principal); N18.6 End stage renal disease; D63.1 Anemia in chronic kidney disease; E78.5 Hyperlipidemia, unspecified; M25.462 Effusion, left knee

== ENCOUNTER → 2019-05-16 14:32 | Outpatient (CLI) | payer MEDICARE, OTHER ==
[2018-10-11 09:37] VITALS: BMI 26.6
[~2019-05-16 14:32] MED LIST changes: +ATARAX 25 MG TA25 MG PO; +LEVOFLOXACIN500 MG PO; +MEGACE40 MG PO; +METOLAZONE5 MG PO; +PHOSLO667 MG PO
[2019-05-16 14:51] LABS: BASOPHILS 0.2 % (0-2); IMMATURE GRANULOCYTES 0.4 % (0-5); LYMPHOCYTES 15.8 % (15-50); MCH 30.4 pg (26.0-34.0); MCHC 32.4 g/dL (31.0-37.0); MCV 93.9 fL (80.0-100.0); MEAN PLATELET VOLUME 8.3 fL (7.4-10.4); MONOCYTES 9.7 % (2-11); NEUTROPHILS 70.9 % (40-80); PLATELET COUNT 131 10x3/uL (130-400); RBC 3.62 10x6/uL (4.20-6.10); RDW 15.2 % (11.5-14.5); WBC 9.1 10x3/uL (4.8-10.8)
[2019-05-16 15:20] LABS: ALBUMIN 3.3 g/dL (3.4-5.0); ANION GAP 16.9 mmol/L (8-16); BILIRUBIN - TOTAL 0.36 mg/dL (0.2-1.3); CALCIUM 8.5 mg/dL (8.5-10.1); CARBON DIOXIDE 25.7 mmol/L (21.0-32.0); CREATININE - SERUM 9.3 mg/dL (0.6-1.3); POTASSIUM - SERUM 3.6 mmol/L (3.5-5.1)
== END | disposition home or self-care (01) ==
LOC: D.LAB 14:32
PROVIDERS: ATTEND Internal Medicine Nephrology
DX: R10.9 Unspecified abdominal pain (principal); N18.6 End stage renal disease

== ENCOUNTER → 2019-07-23 10:21 | Outpatient (CLI) | payer MEDICARE, OTHER ==
[2018-10-11 09:37] VITALS: BMI 26.6
--- NOTE | ~2019-07-23 | EC ---
PATIENT:DEBORAH RUCKER DATE OF SERVICE: 07/23/19 SEX: M MEDICAL RECORD: [id number] DATE OF : [birth year] LOCATION:D[facility] AGE OF PATIENT: 69 ADMISSION DATE: 07/23/19 REFERRING PHYSICIAN: INTERPRETING PHYSICIAN: JOSE DEE MD ECHOCARDIOGRAM REPORT ECHO CHARGES 4 ECHO COMPLETE Date: 07/23/19 CLINICAL DIAGNOSIS: CAD HX OF MITRAL/TRICUSPID REGURG,CABG ECHOCARDIOGRAPHIC MEASUREMENTS (adult normal given) AC root (d.<3.7cm) 4.1 cm LV Septum d (<1.2 cm> 1.4 cm Valve Excursion 2.5 cm LV Septum (systole) 1.8 cm Left Atria (s.<4.0cm> 4.6 cm LVPW d(<1.2cm) 1.6 cm RV (d.<2.3cm) 4.8 cm LVPW (sytole) 1.9 cm LV diastole(<5.6CM) 6.6 cm MV E-F(>70mm/sec) cm LV systole 4.8 cm LVOT Diameter 2.1 cm MV exc.(>10mm) 1.5 cm Est.ejection fraction (50-75%) % DOPPLER: LVIT cm/sec A 92.0 cm/sec E 55.0 cm/sec LA cm/sec RVSP 20 mmHg LVOT 114 cm/sec AOP1/2T m/s Asc. Ao 133 cm/sec RVOT 80 cm/sec RA cm/sec PA 113 cm/sec AV Gradient Peak 7.04 mmHg AV Mean 4.14 mmHg AV Area 2.8 cm MV Gradient Peak 4.06 mmHg MV Mean 1.25 mmHg MV Area cm COMMENTS: Flap Maker: Evi HOGAN Dehydrator: 3 Dr. Chavis TAPE# pacs Pericardial Effusion N DATE OF SERVICE: 07/23/2019 Adequate 2-D echo, color-flow and spectral Doppler, and M-mode. LVH is present. LV internal dimensions are normal. Wall motion is normal. EF is greater than or equal to 55%. Aortic valve is tricuspid. No evidence of stenosis by Doppler interrogation. Left atrium is dilated at 4.6 cm. Mitral valve shows no prolapse. Mild MR. Right-sided chambers are grossly normal. Mild TR. ECHOCARDIOGRAM REPORT [id number] CHAIM,DEBORAH GENE TRANSINT:[id number] Voice Confirmation ID: [id number] DOCUMENT ID: [id number] JOSE DEE MD CC: [id number] DICTATION DATE: 07/24/19 141 DRY CURER: 07/24/19 1834 DEP CLI 07/23/19 [facility] [address] [place] [address]
== END | disposition home or self-care (01) ==
LOC: D.HCCECHO 10:21 → D.HCCARDIO 10:30 → D.HCCECHO 10:30
PROVIDERS: ATTEND Internal Medicine Interventional Cardiology
DX: I25.10 Atherosclerotic heart disease of native coronary artery without angina pectoris (principal)